=== PATIENT | male | born 1970 | race Two or more races ===

== ENCOUNTER 2023-05-07 20:58 | Observation (INO) | payer BC, SELFPAY ==
[2023-05-07 21:05] VITALS: BP 138/92; PULSE 94; RESP 18; TEMP 36.8; O2SAT 97; BMI 45.5
--- NOTE | 2023-05-07 22:05 | ED_ITS ---
HPI - Extremity Injury (Lower) General Chief Complaint: Extremity Injury, Lower Stated Complaint: RT LEG SWELLING REDNESS Time Seen by Provider: 05/07/23 21:56 Mode of arrival: walk-in History of Present Illness HPI Narrative: past history of cellulitis RLE 2 years ago. Now presents complaining of recurrent chills for 3 days. He spent 3 days on the couch. Yesterday noticed redness RLE. Did not come to the hospital because he wanted to go to a family alliance party. Now presents for evaluation. Still has redness of his right lower extremity that has now extended about his knee. Denies history of diabetes. Related Data Home Medications Medication Instructions Recorded Confirmed No Known Home Medications 05/07/23 05/07/23 Allergies Allergy/AdvReac Type Severity Reaction Status Date / Time No Known Drug Allergies Allergy Verified 05/07/23 21:11 Review of Systems ROS Status of ROS 10 or more systems reviewed and unremarkable except as noted in history and below PFSH PFSH Social History Smoking status: Former smoker Exam Constitutional Vital Signs, click to edit/add: Last Vital Signs Temp 98.3 F 05/07/23 21:05 Pulse 94 H 05/07/23 21:05 Resp 18 05/07/23 21:05 BP 138/92 H 05/07/23 21:05 Pulse Ox 97 05/07/23 21:05 O2 Del Method Room Air 05/07/23 21:05 Common normals: no apparent distress, oriented x3, alert and well nourished Eye Common normals: EOMs intact bilaterally and conjunctivae normal Respiratory Common normals: normal respiratory effort, no retractions, no use of accessory muscles and clear to auscultation bilaterally Cardio Common normals: regular rate, regular rhythm, S1 normal heart sound and S2 n ormal heart sound GI Common normals: Normal to inspection, nondistended, normoactive bowel sounds present, soft to palpation and non-tender Extremity Other: erythema and swelling entire right lower ext. with erythema extending just above the right knee Neuro Common normals: oriented x3, CN's II-XII intact bilaterally, moves all extremities, no focal motor deficits and no sensory deficits noted Psych Appearance: grossly normal Course Vital Signs Vital signs: Vital Signs Temperature 98.3 F 05/07/23 21:05 Pulse Rate 94 H 05/07/23 21:05 Respiratory Rate 18 05/07/23 21:05 Blood Pressure 138/92 H 05/07/23 21:05 Pulse Oximetry 97 05/07/23 21:05 Oxygen Delivery Method Room Air 05/07/23 21:05 Temperature 98.3 F 05/07/23 21:05 Pulse Rate 94 H 05/07/23 21:05 Respiratory Rate 18 05/07/23 21:05 Blood Pressure 138/92 H 05/07/23 21:05 Pulse Oximetry 97 05/07/23 21:05 Oxygen Delivery Method Room Air 05/07/23 21:05 MDM - Extremity Injury (Lower) MDM Narrative Medical decision making narrative: patient presents with cellulitis RLE and elevated d-dimer . Was hospitalized a [facility] 2 years ago for similar infection of his leg and states it was not getting better despite antibiotics at first. He described a biopsy of his leg was performed due to his poor response to antibiotics but then it started to improve. He has been ill with chills(shaking chills) for past 2-3 days. Noticed redness of his leg yesterday that has extended. d-dimer elevated. Discussed with the hospitalist. patient given vanco and clindamycin. also dose of Lovenox ordered. Patient admitted to hospitalist service Discharge Plan Discharge Chief Complaint: Extremity Injury, Lower Clinical Impression: Cellulitis of leg, right Patient Disposition: Admitted as Observation
[2023-05-07 22:11] LABS: Basophils Percent Auto 0.2 % (0.2-2.0); Eosinophils Absolute Auto 0.2 10^3/uL (0.0-0.7); Hematocrit 40.9 % (42.0-54.0); Immature Granulocytes Abs Auto 0.05 10^3/uL (0.00-0.03); Immature Granulocytes Pct Auto 0.8 % (0.0-0.5); Lymphocytes Absolute Auto 1.2 10^3/uL (1.2-3.8); Lymphocytes Percent Auto 17.4 % (20.5-60.0); Mean Corpuscular HGB Conc 31.8 g/dL (29.9-35.2); Mean Corpuscular Volume 81.8 fL (80.0-94.0); Mean Platelet Volume 10.1 fL (9.5-13.5); Monocytes Absolute Auto 0.5 10^3/uL (0.3-0.8); Monocytes Percent Auto 6.9 % (1.7-12.0); Neutrophils Absolute Auto 4.8 10^3/uL (1.4-6.5); Neutrophils Percent Auto 71.7 % (43.0-75.0); Platelet Count 239 10^3/uL (150-450); Red Cell Distribution Width 13.9 % (11.0-15.0); White Blood Count 6.7 10^3/uL (4.0-11.0)
[2023-05-07 22:20] LABS: Anion Gap 12.6; BUN Creatinine Ratio 11.1; C Reactive Protein 11.7 mg/dL (<=1.0); Calcium 8.3 mg/dL (8.5-10.1); Carbon Dioxide 26.1 mmol/L (21.0-32.0); Chloride 102 mmol/L (98-107); Estimated GFR (African America >60 (>=60); Estimated GFR (Non-African Ame >60 (>=60); Glucose 209 mg/dL (74-106); Potassium 3.7 mmol/L (3.5-5.1); Sodium 137 mmol/L (136-145)
[2023-05-07 22:21] LABS: Erythrocyte Sedimentation Rate 98 mm/hr (<=20)
[2023-05-07 22:23] LABS: D Dimer 0.71 mg/L FEU (<=0.59)
[2023-05-07] MEDS: CLINDAMYCIN PHOSPHATE/D5W 900 MG/50 ML PIGGYBACK 100 MG IV (22:29)
[2023-05-07] MEDS: VANCOMYCIN HCL 1,000 MG in 0.9 % SODIUM CHLORIDE 250 ML 250 MG IV (23:00)
[2023-05-07 23:12] VITALS: BP 120/75; PULSE 88; RESP 16; O2SAT 97
[2023-05-07] MEDS: ENOXAPARIN SODIUM 120 MG/0.8 ML SYRINGE SUBQ (23:16)
[2023-05-07 23:53] VITALS: BMI 45.9
[2023-05-08] VITALS: BP 112/78; PULSE 91; RESP 18; TEMP 36.9; O2SAT 94
--- NOTE | 2023-05-08 02:09 | W.PM.TELEPN ---
Progress Note: Subjective Subjective Interval history: Pt reports that he was driving to a friend's house on (approximately 25 miles) when he arrived, he felt severe chills and shaking. He noticed pain and redness and swelling in his legs and when he returned home, he wrapped himself in blankets and felt fevers and chills for two days, after which he decided to come to the hospital as his condition was not improving. In the ED, he was noted to have swelling and concern for cellulitis and was referred for admission to medicine. At the time of my exam, his pain is well controlled and he complains more of a pressure like sensation in the leg. He denies any trauma to the leg, no shortness of breath, no pertinent history of same. Exam Narrative Exam Narrative: General: NAD, sitting up in bed. HEENT: NC/AT, PEERL Neck: FROM Card: RRR, S1, S2, No murmur Pulm: CTA B/L Gastro: No guarding Musculosk: ++edema and erythema of RLE extending to R knee Neuro: AAOx2 Psych: Calm, Cooperative, Cheerful Constitutional Vital Signs, click to edit/add: Last Vital Signs Temp 98.4 F 05/08/23 00:00 Pulse 91 H 05/08/23 00:00 Resp 18 05/08/23 00:00 BP 112/78 05/08/23 00:00 Pulse Ox 94 L 05/08/23 00:00 O2 Del Method Room Air 05/08/23 00:00 Progress Note: Objective Labs Labs: Short CBC 05/07/23 Range/Units 21:15 WBC 6.7 (4.0-11.0) 10^3/uL Hgb 13.0 L (14.0-18.0) g/dL Hct 40.9 L (42.0-54.0) % Plt Count 239 (150-450) 10^3/uL BMP 05/07/23 21:15 Sodium 137 Potassium 3.7 Chloride 102 Carbon Dioxide 26.1 BUN 12.0 Creatinine 1.08 Glucose 209 H Calcium 8.3 L Progress Note: A&P Assessment and Plan (1) Cellulitis of leg, right: Assessment and Plan: - Admit to inpatient - Blood cx x 2 given persistent rigors - Tylenol PRN - Doppler US RLE - Pt received Vancomycin and CLindamycin in the ED - Continue Ancef, monitor response Telemedicine Attestation Telemedicine Attestation I conducted this encounter from [[place]] via secure live, [id number] video conference with the patient, located at [facility] with [nurse]. Prior to the interview, the risks and benefits of telemedicine were discussed with the patient and verbal consent was obtained.
--- NOTE | 2023-05-08 02:16 | US_ITS ---
[facility] [id number] Patient Name: SAIDA CABRERA MRN: [id number] date: 1970 Sex: M Assigned Patient Location: [place] Current Patient Location: [place] Accession/Order Number: [id number] Exam Date: 05/08/2023 07:40 Report Date: 05/08/2023 09:39 At the request of: ANA DRAKE Procedure: US venous doppler LE BI EXAMINATION: US venous doppler LE BI HISTORY: Swelling , redness, pain COMPARISON: No relevant comparison available. FINDINGS: REGION: Bilateral extremities THROMBI: None. COMPRESSIBILITY: Normal compressibility. FLOW: Normal waveform and antegrade flow between 5 and 20 cm/s. OTHER: Subcutaneous edema within lower right leg. Prominent lymph node within right groin; likely reactive. US/US venous doppler LE BI IMPRESSION: 1. No deep vein thrombus within the right or left lower extremity. 2. Distal right lower extremity subcutaneous edema. Electronically authenticated by: MARY CLARK Date: 05/08/2023 09:39
[2023-05-08] MEDS: CEFAZOLIN SODIUM 1,000 MG VIAL 1000 MG (03:02)
[2023-05-08] MEDS: 0.9 % SODIUM CHLORIDE 50 ML 100 ML IV (03:02)
[2023-05-08 04:40] LABS: Basophils Percent Auto 0.3 % (0.2-2.0); Eosinophils Absolute Auto 0.2 10^3/uL (0.0-0.7); Eosinophils Percent Auto 3.2 % (0.9-7.0); Hemoglobin 11.8 g/dL (14.0-18.0); Immature Granulocytes Abs Auto 0.05 10^3/uL (0.00-0.03); Immature Granulocytes Pct Auto 0.8 % (0.0-0.5); Lymphocytes Absolute Auto 1.6 10^3/uL (1.2-3.8); Mean Corpuscular HGB Conc 30.3 g/dL (29.9-35.2); Mean Corpuscular Hemoglobin 25.9 pg (25.9-34.0); Mean Corpuscular Volume 85.7 fL (80.0-94.0); Mean Platelet Volume 9.9 fL (9.5-13.5); Monocytes Absolute Auto 0.6 10^3/uL (0.3-0.8); Monocytes Percent Auto 9.3 % (1.7-12.0); Neutrophils Percent Auto 61.4 % (43.0-75.0); Platelet Count 215 10^3/uL (150-450); Red Blood Count 4.55 10^6/uL (4.70-6.10); Red Cell Distribution Width 14.1 % (11.0-15.0); White Blood Count 6.6 10^3/uL (4.0-11.0)
[2023-05-08 05:01] LABS: Alanine Aminotransferase 36 U/L (16-63); Albumin Globulin Ratio 0.7; Albumin Level 2.9 g/dL (3.4-5.0); Alkaline Phosphatase 78 U/L (46-116); Anion Gap 11.9; Aspartate Amino Transferase 14 U/L (15-37); BUN Creatinine Ratio 13.8; Bilirubin Total 0.5 mg/dL (0.2-1.0); Calcium 8.5 mg/dL (8.5-10.1); Carbon Dioxide 28.1 mmol/L (21.0-32.0); Chloride 104 mmol/L (98-107); Estimated GFR (African America >60 (>=60); Estimated GFR (Non-African Ame >60 (>=60); Globulin 4.4 g/dL; Glucose 135 mg/dL (74-106); Magnesium 2.5 mg/dL (1.8-2.4); Sodium 140 mmol/L (136-145); Total Protein 7.3 g/dL (6.4-8.2)
[2023-05-08 05:56] VITALS: BP 129/73; PULSE 78; RESP 16; TEMP 37.2; O2SAT 96
--- NOTE | 2023-05-08 08:11 | P.HP_ITS ---
H&P: HPI History of Present Illness Chief complaint: rt leg swelling redness Narrative: For and chills last 4 to 5 days. Erythema started in the right lower extremity in the last 3 days. Patient is a history of severe cellulitis leading to sepsis approximately 2 years ago at additional facility. This is the same leg where that started. We will try to obtain records. Patient mated for IV antibiotics secondary to the severity of his cellulitis and the history of the sepsis secondary to cellulitis of the same extremity. Ultrasound of lower extremities are pending Review of Systems ROS Constitutional Reports: fever and chills Cardiovascular Denies: chest pain Respiratory Denies: shortness of breath Gastrointestinal Denies: abdominal pain Genitourinary Denies: painful urination Musculoskeletal Denies: back pain Neurological Denies: headache PFSH PFSH Medical History (Updated 05/07/23 @ 23:45 by Stefany Hairston) Surgical History (Updated 05/07/23 @ 23:48 by Stefany Hairston) Family History (Updated 05/07/23 @ 23:48 by Stefany Hairston) Father Heart failure Mother Heart failure Social History (Updated 05/07/23 @ 23:49 by Stefany Hairston) Smoking status: Former smoker Non-prescribed substance use: denies use 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- [employer] Highest level of school completed/degree received: high school graduate Are you now , , , , never or living with a partner: Little interest or pleasure in doing things: not at all Feeling down, depressed, or hopeless: not at all Feel stressed/tense/nervous/anxious/difficulty sleeping: not at all Do you think of yourself as: straight/heterosexual Gender Identity: male Meds Home Medications and Allergies Home Medications Medication Instructions Recorded Confirmed Type No Known Home Medications 05/07/23 05/07/23 History Allergies Allergy/AdvReac Type Severity Reaction Status Date / Time No Known Drug Allergies Allergy Verified 05/07/23 21:11 Exam Constitutional Vital Signs, click to edit/add: Last Vital Signs Temp 98.9 F 05/08/23 05:56 Pulse 78 05/08/23 05:56 Resp 16 05/08/23 05:56 BP 129/73 H 05/08/23 05:56 Pulse Ox 96 05/08/23 05:56 O2 Del Method Room Air 05/08/23 05:56 Documenting provider has reviewed patient's vital signs: yes Common normals: no apparent distress Chest Common normals: inspection of chest normal Respiratory Common normals: normal respiratory effort, no retractions and clear to auscultation bilaterally Cardio Common normals: regular rate, regular rhythm and no murmurs GI Common normals: Normal to inspection, nondistended, normoactive bowel sounds present Extremity Common normals: abnormal to inspection (Significant swelling right lower extremity. Erythema extending up most of ) Other: Area below the knee, at the line of demarcation. Results Labs Labs: Short CBC 05/07/23 05/08/23 Range/Units 21:15 04:15 WBC 6.7 6.6 (4.0-11.0) 10^3/uL Hgb 13.0 L 11.8 L (14.0-18.0) g/dL Hct 40.9 L 39.0 L (42.0-54.0) % Plt Count 239 215 (150-450) 10^3/uL BMP 05/07/23 05/08/23 21:15 04:15 Sodium 137 140 Potassium 3.7 4.0 Chloride 102 104 Carbon Dioxide 26.1 28.1 BUN 12.0 13.0 Creatinine 1.08 0.94 Glucose 209 H 135 H Calcium 8.3 L 8.5 Liver Function 05/08/23 Range/Units 04:15 Total Bilirubin 0.5 (0.2-1.0) mg/dL AST 14 L (15-37) U/L ALT 36 (16-63) U/L Alkaline Phosphatase 78 (46-116) U/L Albumin 2.9 L (3.4-5.0) g/dL Assessment and Plan Assessment and Plan (1) Cellulitis of leg, right: Assessment and Plan: Cellulitis of right lower extremity, same extremity that resulted in sepsis 2 years ago. Was treated for prolonged stay at an outside facility. We will try to obtain those records. White blood cell count so far is normal but sedimentation rate significantly elevated. We will track that daily. Monitor Chem-8 daily secondary to being placed on vancomycin.-Check ultrasound lower extremities this morning. Hyperglycemia on admission-not a known [id number]-[id number] and insulin sliding scale
[2023-05-08] MEDS: CEFAZOLIN SODIUM/DEXTROSE,ISO 1 GM/50 ML IV.SOLN IV ×2 (10:25→18:12)
[2023-05-08] MEDS: VANCOMYCIN HCL 1,000 MG in 0.9 % SODIUM CHLORIDE 250 ML 250 MG IV ×2 (11:17→18:47)
[2023-05-08 11:30] LABS: Glucometer 138 mg/dL (74-106)
[2023-05-08 14:41] VITALS: BP 151/79; PULSE 76; RESP 18; TEMP 36.8; O2SAT 96
[2023-05-08 15:05] VITALS: O2SAT 96
[2023-05-08 16:07] LABS: Glucometer 122 mg/dL (74-106)
[2023-05-08 19:15] VITALS: O2SAT 95
[2023-05-08 20:24] VITALS: BP 124/74; PULSE 84; RESP 18; TEMP 36.7; O2SAT 93
[2023-05-08 21:18] LABS: Glucometer 209 mg/dL (74-106)
[2023-05-08] MEDS: INSULIN ASPART 300 UNIT/3 ML PEN SUBQ (22:11)
[2023-05-09] MEDS: CEFAZOLIN SODIUM/DEXTROSE,ISO 1 GM/50 ML IV.SOLN IV (01:10)
[2023-05-09] MEDS: VANCOMYCIN HCL 1,000 MG in 0.9 % SODIUM CHLORIDE 250 ML 250 MG IV (02:03)
[2023-05-09 04:00] VITALS: BP 163/77; PULSE 70; RESP 18; TEMP 36.4; O2SAT 91
[2023-05-09 04:46] LABS: Basophils Percent Auto 0.3 % (0.2-2.0); Eosinophils Absolute Auto 0.2 10^3/uL (0.0-0.7); Eosinophils Percent Auto 3.5 % (0.9-7.0); Hematocrit 40.2 % (42.0-54.0); Hemoglobin 12.3 g/dL (14.0-18.0); Immature Granulocytes Pct Auto 1.5 % (0.0-0.5); Lymphocytes Absolute Auto 1.3 10^3/uL (1.2-3.8); Lymphocytes Percent Auto 19.6 % (20.5-60.0); Mean Corpuscular HGB Conc 30.6 g/dL (29.9-35.2); Mean Corpuscular Hemoglobin 26.1 pg (25.9-34.0); Mean Corpuscular Volume 85.2 fL (80.0-94.0); Mean Platelet Volume 9.6 fL (9.5-13.5); Monocytes Absolute Auto 0.5 10^3/uL (0.3-0.8); Monocytes Percent Auto 6.6 % (1.7-12.0); Neutrophils Absolute Auto 4.7 10^3/uL (1.4-6.5); Neutrophils Percent Auto 68.5 % (43.0-75.0); Platelet Count 232 10^3/uL (150-450); Red Blood Count 4.72 10^6/uL (4.70-6.10); Red Cell Distribution Width 13.9 % (11.0-15.0); White Blood Count 6.9 10^3/uL (4.0-11.0)
[2023-05-09 04:54] LABS: Erythrocyte Sedimentation Rate 86 mm/hr (<=20)
[2023-05-09 05:00] LABS: BUN Creatinine Ratio 13.5; Calcium 8.5 mg/dL (8.5-10.1); Carbon Dioxide 27.4 mmol/L (21.0-32.0); Chloride 106 mmol/L (98-107); Estimated GFR (African America >60 (>=60); Estimated GFR (Non-African Ame >60 (>=60); Glucose 176 mg/dL (74-106); Potassium 4.4 mmol/L (3.5-5.1); Sodium 141 mmol/L (136-145)
[2023-05-09 07:27] LABS: Glucometer 116 mg/dL (74-106)
--- NOTE | 2023-05-09 07:42 | P.DS_ITS ---
DS: Providers Provider Date of admission: 05/08/23 02:17 Primary care physician: Vivek Milton MD DS: Diagnosis Discharge Diagnosis (1) Cellulitis of leg, right: Plan Cellulitis of right lower extremity, Hyperglycemia DS: Summary Hospital Course Hospital Course: Patient admitted with fever, chills, increasing right leg pain and swelling and erythema. He was found to have cellulitis of his right lower extremity. With the fever and chills and a history of sepsis secondary to the right lower extremity cellulitis 2 years ago. Patient was admitted with IV antibiotics. Started on vancomycin and cephalosporin IV. Over the first 12 hours with no significant improvement in the erythema appears to still at the edge and 1 area outside the line of demarcation. Today however looks much improved. Well inside line of demarcation the calor is much improved with the dolor is much improved and the rubor is fading. At this point we will discharge patient home in improving condition. Medications see list. Follow-up with me in the office within the next week. Status at Discharge Functional status at discharge: independent ambulation Time Spent with Patient Time attestation: Total time spent providing and/or coordinating discharge services: Exam Constitutional Vital Signs, click to edit/add: Last Vital Signs Temp 97.5 F L 05/09/23 04:00 Pulse 70 05/09/23 04:00 Resp 18 05/09/23 04:00 BP 163/77 H 05/09/23 04:00 Pulse Ox 91 L 05/09/23 04:00 O2 Del Method Room Air 05/09/23 04:00 Documenting provider has reviewed patient's vital signs: yes Common normals: no apparent distress Chest Common normals: inspection of chest normal Respiratory Common normals: normal respiratory effort, no retractions and clear to auscultation bilaterally Cardio Common normals: regular rate, regular rhythm and no murmurs GI Common normals: Normal to inspection, nondistended, normoactive bowel sounds present Extremity Common normals: abnormal to inspection (Significant swelling right lower extremity. Erythema extending up most of ) Other: Area below the knee, inside line of demarcation. DS: Data Data Completed and Pending Labs on day of discharge: Labs from last 24 hours 05/09/23 05/09/23 05/08/23 07:08 04:15 21:15 WBC 6.9 RBC 4.72 Hgb 12.3 L Hct 40.2 L MCV 85.2 MCH 26.1 MCHC 30.6 RDW 13.9 Plt Count 232 MPV 9.6 Neut % (Auto) 68.5 Lymph % (Auto) 19.6 L Da[place]hin % (Auto) 6.6 Eos % (Auto) 3.5 Baso % (Auto) 0.3 Neut # (Auto) 4.7 Lymph # (Auto) 1.3 Da[place]hin # (Auto) 0.5 Eos # (Auto) 0.2 Baso # (Auto) 0.0 Abs Immat Gran (auto) 0.10 H Imm/Tot Granulo (auto) 1.5 H ESR 86 H Sodium 141 Potassium 4.4 Chloride 106 Carbon Dioxide 27.4 Anion Gap 12.0 BUN 13.0 Creatinine 0.96 Est GFR ( Amer) >60 Est GFR (Non-Af Amer) >60 BUN/Creatinine Ratio 13.5 Glucose 176 H Calcium 8.5 POC Glucose 116 H 209 H 05/08/23 05/08/23 16:06 11:29 WBC RBC Hgb Hct MCV MCH MCHC RDW Plt Count MPV Neut % (Auto) Lymph % (Auto) Dauphin % (Auto) Eos % (Auto) Baso % (Auto) Neut # (Auto) Lymph # (Auto) Da[place]hin # (Auto) Eos # (Auto) Baso # (Auto) Abs Immat Gran (auto) Imm/Tot Granulo (auto) ESR Sodium Potassium Chloride Carbon Dioxide Anion Gap BUN Creatinine Est GFR ( Amer) Est GFR (Non-Af Amer) BUN/Creatinine Ratio Glucose Calcium POC Glucose 122 H 138 H Discharge Plan Discharge Disposition: Home, Self-Care Condition: Good Discharge Medications: New clindamycin HCl 300 mg capsule 300 mg PO Q6H 10 Days Qty: 40 0RF cephalexin 500 mg capsule 1,000 mg PO BID 10 Days Qty: 40 0RF Activity: resume usual activities as tolerated Diet: advance to your usual diet Patient Instructions: Cephalexin (By mouth), Clindamycin (By mouth), Cellulitis (GEN) Forms: Portal Instructions Follow Up Appointments: Follow up appt. with Dr. Milton on May.19 @ 2:45pm Office #: [phone] Discharge Date/Time: 05/09/23 08:45
--- NOTE | 2023-05-10 13:01 | CM.DCFOLLOWU ---
Person spoke with: patient How are you feeling? doing well How is your pain? none Did you understand your discharge instructions? yes Do you have any questions about your discharge instructions? no Were you given any prescriptions at discharge? yes Were you able to get your prescriptions filled? yes Do you understand how to take your medications as ordered? yes Do you have any questions about your follow up appointment and do you plan to keep your follow up appointment? I changed it to this MondayMay 12. Is there anything else that you would like to discuss? no thanks Questions/Comments/Concerns/Other: n/a
== END 2023-05-09 08:45 | disposition home or self-care (01) ==
LOC: ER 22:47 → MS 23:44
PROVIDERS: Admitting Provider Internal Medicine; Emergency Provider Internal Medicine; PCP Family Medicine; Visit Provider Family Medicine
DX: L03.115 Cellulitis of right lower limb (principal); R73.9 Hyperglycemia, unspecified; R70.0 Elevated erythrocyte sedimentation rate; Z87.891 Personal history of nicotine dependence
CPT/HCPCS: 36415; 80048; 80053; 82948; 83735; 85025; 85378; 85652; 86140; 87081; 93970; 94761; 96365; 96366; 96367; 96368; 96372; 99285; G0378; J3370; Q3014

== ENCOUNTER 2023-05-12 09:51 | Outpatient (OUT) | payer BC, SELFPAY ==
[2023-05-12 10:23] LABS: Basophils Absolute Auto 0.1 10^3/uL (0.0-0.1); Basophils Percent Auto 0.7 % (0.2-2.0); Eosinophils Absolute Auto 0.2 10^3/uL (0.0-0.7); Eosinophils Percent Auto 2.9 % (0.9-7.0); Hematocrit 44.3 % (42.0-54.0); Hemoglobin 13.8 g/dL (14.0-18.0); Immature Granulocytes Pct Auto 4.8 % (0.0-0.5); Lymphocytes Absolute Auto 1.7 10^3/uL (1.2-3.8); Lymphocytes Percent Auto 20.8 % (20.5-60.0); Mean Corpuscular HGB Conc 31.2 g/dL (29.9-35.2); Mean Corpuscular Hemoglobin 25.9 pg (25.9-34.0); Mean Corpuscular Volume 83.3 fL (80.0-94.0); Mean Platelet Volume 9.1 fL (9.5-13.5); Monocytes Absolute Auto 0.4 10^3/uL (0.3-0.8); Monocytes Percent Auto 4.9 % (1.7-12.0); Neutrophils Absolute Auto 5.5 10^3/uL (1.4-6.5); Neutrophils Percent Auto 65.9 % (43.0-75.0); Platelet Count 346 10^3/uL (150-450); Red Blood Count 5.32 10^6/uL (4.70-6.10); Red Cell Distribution Width 13.7 % (11.0-15.0); White Blood Count 8.4 10^3/uL (4.0-11.0)
[2023-05-12 11:09] LABS: Estimated Average Glucose 154 mg/dL
[2023-05-12 11:24] LABS: Alanine Aminotransferase 35 U/L (16-63); Albumin Globulin Ratio 0.7; Albumin Level 3.5 g/dL (3.4-5.0); Alkaline Phosphatase 90 U/L (46-116); Anion Gap 10.9; Aspartate Amino Transferase 11 U/L (15-37); BUN Creatinine Ratio 17.2; Bilirubin Total 0.6 mg/dL (0.2-1.0); Calcium 9.3 mg/dL (8.5-10.1); Carbon Dioxide 28.6 mmol/L (21.0-32.0); Chloride 105 mmol/L (98-107); Chol HDL Ratio 6.2; Cholesterol 193 mg/dL (<=200); Estimated GFR (African America >60 (>=60); Estimated GFR (Non-African Ame >60 (>=60); Free T3 2.71 pg/mL (2.18-3.98); Globulin 4.7 g/dL; Glucose 136 mg/dL (74-106); HDL Cholesterol 31 mg/dL (40-60); Potassium 4.5 mmol/L (3.5-5.1); Sodium 140 mmol/L (136-145); Thyroid Stimulating Hormone 2.541 uIU/mL (0.358-3.740); Total Protein 8.2 g/dL (6.4-8.2); Triglycerides 143 mg/dL (<=150); VLDL CHOLESTEROL 28.6 mg/dL
[2023-05-12 12:58] LABS: Prostate Specific Antigen Scrn 0.74 ng/mL (<=4.00)
[2023-05-13 12:08] LABS: Insulin 51.3 uIU/mL (2.6-24.9)
== END 2023-05-12 09:52 | disposition home or self-care (01) ==
LOC: LAB 09:52
PROVIDERS: PCP Family Medicine; Visit Provider Family Medicine
DX: Z00.00 Encounter for general adult medical examination without abnormal findings (principal); Z12.5 Encounter for screening for malignant neoplasm of prostate
CPT/HCPCS: 36415; 80053; 80061; 83036; 83525; 84436; 84443; 84481; 85025; G0103

== ENCOUNTER 2023-08-02 20:12 | Outpatient (OUT) | payer BC, SELFPAY | END 2023-08-02 20:13 | disposition home or self-care (01) | LOC: SLEEP 20:12 | PROVIDERS: PCP Family Medicine; Visit Provider Family Medicine | DX: G47.33 Obstructive sleep apnea (adult) (pediatric) (principal) | CPT/HCPCS: 95810 ==

== ENCOUNTER 2023-08-09 20:33 | Outpatient (OUT) | payer BC, SELFPAY | END 2023-08-09 20:34 | disposition home or self-care (01) | LOC: SLEEP 20:33 | PROVIDERS: PCP Family Medicine; Visit Provider Family Medicine | DX: G47.33 Obstructive sleep apnea (adult) (pediatric) (principal) | CPT/HCPCS: 95811 ==

== ENCOUNTER 2024-05-28 12:35 | Emergency (ER) | payer BC, SELFPAY ==
[2024-05-28 12:42] VITALS: BP 163/91; PULSE 84; TEMP 36.6; O2SAT 97; BMI 45.5
--- OUTSIDE RECORDS SUMMARY | 2024-05-28 12:53 | XMS_ITS | CCD ---
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 Name Role Phone Oscar Milton Primary Care Physician [phone] REQUEST, NONE LISTED Primary Care Unavaila ble BONITA, DR SUMMERS Consulting Unavailable FALL, DR SUMMERS Admitting Unavailable FALL, DR SUMMERS Attending Unavailable REQUEST, NONE LISTED Primary Care Unavaila ble BONITA, DR SUMMERS Consulting Unavailable FALL, DR SUMMERS Admitting Unavailable FALL, DR SUMMERS Attending Unavailable SCHAEFER, GUANACO FLOYD Consulting Unavailable JAYSON, GENIA Consulting Unavailable KARINE, DR MOORE Attending Unavailable REQUEST, NONE LISTED Primary Care Unavaila haleigh MILTON, DR MOORE Admitting Unavailable BONITA, DR SUMMERS Attending Unavailable REQUEST, DR MARKHAM LISTED Primary Care Unavaila ble FALL, DR SUMMERS Consulting Unavailable FALL, DR SUMMERS Admitting Unavailable FALL, MD Uvaldo Blakely Attending Unavailable FALL, MD Uvaldo Blakely Attending Unavailable BONITA, MD Uvaldo Blakely Attending Unavailable Nasimy PROVIDEROscar Referring Unavailabl e BONITA, MD Uvaldo Blakely Attending Unavailable Allergies Allergy Classification Reported Allergen(s) Allergy Type Date of Onset Reaction(s) Facility (1 source) No Known Medication Allergies; Translations: [No Known Medication Allergies] Propensity to adverse reactions (disorder) [facility] Repository Problems Problem Classification Problem Date Documented Date Episodic/Chronic Genitourinary symptoms and ill-defined conditions (5 sources) Sensation as if bladder still full; Translations: [Feeling of incomplete bladder emptying] Onset: 07-18-2022 Episodic Hyperplasia of prostate (5 sources) Benign prostatic hypertrophy with outflow obstruction; Translations: [Benign prostatic hyperplasia with lower urinary tract symptoms] Onset: 07-18-2022 Chronic Other diseases of bladder and urethra (1 source) Submeatal urethral stricture; Translations: [Unspecified urethral stricture, male, meatal] Onset: 07-18-2022 Episodic Other diseases of bladder and urethra (3 sources) Male urethral stricture 07-18-2022 Episodic Other diseases of bladder and urethra (4 sources) Unspecified urethral stricture, male, meatal; Translations: [UNSP URETHRAL STRICTURE MALE MEATAL] Onset: 08-11-2022 Episodic Other diseases of bladder and urethra (1 source) Unspecified urethral stricture, male, unspecified site; Translations: [UNSP URETHRAL STRCT MALE UNSP SITE] Onset: 07-30-2022 Episodic Other male genital disorders (1 source) Other specified disorders of penis; Translations: [OTHER SPECIFIED DISORDERS OF PENIS] Onset: 08-17-2022 Chronic Other nutritional; endocrine; and metabolic disorders (1 source) Morbid (severe) obesity due to excess calories; Translations: [MORBID SEVERE OBES D/T EXCESS KELSEA] Onset: 08-17-2022 Chronic Other nutritional; endocrine; and metabolic disorders (1 source) Body mass index (BMI) 40.0-44.9, adult; Translations: [BODY MASS INDEX BMI 40.0-44.9 ADULT] Onset: 08-17-2022 Chronic Other screening for suspected conditions (not mental disorders or infectious disease) (2 sources) Encounter for screening for malignant neoplasm of prostate; Translations: [Screening for malignant neoplasm done] Onset: 07-18-2022 Episodic Residual codes; unclassified (1 source) Past history of procedure; Translations: [Other specified postprocedural states] Onset: 07-18-2022 Episodic Screening and history of mental health and substance abuse codes (1 source) Personal history of nicotine dependence; Translations: [PERSONAL HISTORY OF NICOTINE DEPEND] Onset: 08-17-2022 Episodic Unclassified (3 sources) Finding of sensation of bladder 07-18-2022 Unclassified (3 sources) Patient encounter status 07-18-2022 Unclassified (1 source) CONTACT W/AND (SUSP) EXPOS COVID-19; Translations: [CONTACT W/AND (SUSP) EXPOS COVID-19] Onset: 08-14-2022 Results Test Name Value Interpretation Reference Range Facil ity Provider Letteron 09-16-2022 Provider Letter September 16, 2022 PAKO CABRERA [address] [place] [address] PAKO CABRERA 1970 Dear Pako , You missed your scheduled appointment on: 09/16/[address] Uvaldo Fall and the purpose of this letter is to inform you of our *No Show Policy*. Our appointment slots fill rapidly and when we have a no show appointment that time is lost. We could have used that time slot to care for a patient who needed to see one of our providers. Therefore, we ask that you call 24 hours in advance to cancel your appointment I was unable to reach you to reschedule and you do not have a voicemail set up. Please call our office to reschedule. Sincerely, [facility] [address], [place] [address] [facility] Operative Reporton Operative Report [id number] .00CD:127 [facility] Provider Letteron 08-15-2022 Provider Letter August 15, 2022 PAKO CABRERA [address] [place] [id number] PAKO CABRERA 1970 To Whom It May Concern, Please excuse above patient from work. Date of Appointment: From: 08/15/2022 To: May Return to Work On:08/16/2022 Restrictions: none Comments: Any questions, please call our office Sincerely, [facility] [address], [place] [address] [facility] Lab Reportson 08-11-2022 Lab Reports [id number] .00CD:127 [facility] Covid-19 PCR (CVDTBH)on 07-17 SARS-CoV-2 (COVID-19) RNA SARAH+probe Ql (Unsp spec) Not detected Normal NOT DETECTED [facility] Comment on above: Result Comment: This test is not yet approved or cleared by the [place] FDA. When there are no FDA-approved or cleared tests available, and other criteria are met, FDA can make tests available under an emergency access mechanism called an Emergency Use Authorization (EUA). The EUA for this test is supported by the [place] of Health and Human Service's (HHS's) declaration that circumstances exist to justify the emergency use of in vitro diagnostics for the detection and/or diagnosis of the virus that causes COVID-19. This EUA will remain in effect (meaning this test can be used) for the duration of the COVID-19 declaration justifying emergency of IVDs, unless it is terminated or revoked by FDA (after which the test may no longer be used). When diagnostic testing is negative, the possibility of a false negative should be considered in the context of a patient's recent exposures and the presence of clinical signs and symptoms consistent with SARS-CoV-2. Performed By: #### [facility] #### [facility] [address] [place] [address] Dr. Riri Mcmahon ECG 12-Leadon 07-29-2022 ECG 12-Lead [id number] .00CD:127 Normal [facility] Lab Reportson 07-29-2022 Lab Reports [id number] .00CD:127 Normal [facility] CBC AUTO DIFFon 07-28-2022 BASO # 0.0 103/ul Normal 0.0-0.1 [facility] Comment on above: Performed By: #### C BC #### [facility] [address] [place] [address] Dr. Riri Mcmahon Basophils/100 WBC (Bld) 0.4 % Normal 0.2-2.0 [facility] Comment on above: Performed By: #### C BC #### [facility] [address] [place] [address] Dr. Riri Mcmahon EO # 0.3 103/ul Normal 0.0-0.7 [facility] Comment on above: Performed By: #### C BC #### [facility] [address] [place] [address] Dr. Riri Mcmahon Eosinophils/100 WBC (Bld) 4.4 % Normal 0.9-7.0 [facility] Comment on above: Performed By: #### C BC #### [facility] [address] [place] [address] Dr. Riri Mcmahon Erythrocyte distribution width (RBC) [Ratio] 13.8 % Normal 11.0-15.0 [facility] Comment on above: Performed By: #### C BC #### [facility] [address] [place] [address] Dr. Riri Mcmahon Hematocrit (Bld) [Volume fraction] 44.2 % Normal 42.0-54.0 [facility] Comment on above: Performed By: #### C BC #### [facility] [address] [place] [address] Dr. Riri Mcmahon Hemoglobin (Bld) [Mass/Vol] 13.8 g/dL Critically low 14.0-18.0 [facility] Comment on above: Performed By: #### C BC #### [facility] [address] [place] [address] Dr. Riri Mcmahon IG # 0.04 10e3/ul Critically high 0.00-0.03 [facility] Comment on above: Performed By: #### C BC #### [facility] [address] [place] [address] Dr. Riri Mcmahon IG % 0.5 % Normal 0.0-0.5 [facility] Comment on above: Performed By: #### C BC #### [facility] [address] [place] [address] Dr. Riri Mcmahon LYMPH # 2.0 103/ul Normal 1.2-3.8 [facility] Comment on above: Performed By: #### C BC #### [facility] [address] [place] [address] Dr. Riri Mcmahon Lymphocytes/100 WBC (Bld) 27.2 % Normal 20.5-60.0 [facility] Comment on above: Performed By: #### C BC #### [facility] [address] [place] [address] Dr. Riri Mcmahon MANUAL DIFF REQ NO Normal [facility] Comment on above: Performed By: #### C BC #### [facility] [address] [place] [address] Dr. Riri Mcmahon MCH (RBC) [Entitic mass] 26.3 pg Normal 25.9-34.0 [facility] Comment on above: Performed By: #### C BC #### [facility] [address] [place] [address] Dr. Riri Mcmahon MCHC (RBC) [Mass/Vol] 31.2 g/dL Normal 29.9-35.2 [facility] Comment on above: Performed By: #### C BC #### [facility] [address] [place] [address] Dr. Riri Mcmahon MCV (RBC) [Entitic vol] 84.2 fL Normal 80.0-94.0 [facility] Comment on above: Performed By: #### C BC #### [facility] [address] [place] [address] Dr. Riri Mcmahon MONO # 0.5 103/ul Normal 0.3-0.8 [facility] Comment on above: Performed By: #### C BC #### [facility] [address] [place] [address] Dr. Riri Mcmahon Monocytes/100 WBC (Bld) 6.2 % Normal 1.7-12.0 [facility] Comment on above: Performed By: #### C BC #### [facility] [address] [place] [address] Dr. Riri Mcmahon NEUT # 4.6 103/ul Normal 1.4-6.5 [facility] Comment on above: Performed By: #### C BC #### [facility] [address] [place] [address] Dr. Riri Mcmahon Neutrophils/100 WBC (Bld) 61.3 % Normal 43.0-75.0 [facility] Comment on above: Performed By: #### C BC #### [facility] [address] [place] [address] Dr. Riri Mcmahon Platelet mean volume (Bld) [Entitic vol] 9.4 fL Critically low 9.5-13.5 [facility] Comment on above: Performed By: #### C BC #### [facility] [address] [place] [address] Dr. Riri Mcmahon PLT 261 103/ul Normal 150-450 [facility] Comment on above: Performed By: #### C BC #### [facility] [address] [place] [address] Dr. Riri Mcmahon RBC 5.25 106/ul Normal 4.70-6.10 [facility] Comment on above: Performed By: #### C BC #### [facility] [address] [place] [address] Dr. Riri Mcmahon WBC 7.5 103/ul Normal 4.0-11.0 [facility] Comment on above: Performed By: #### C BC #### [facility] [address] [place] [address] Dr. Riri Mcmahon PROF CHEM 8 (BAS METB)on Anion gap [Moles/Vol] 8.1 mmol/L Normal [facility] Comment on above: Performed By: #### B MP #### [facility] [address] [place] [address] Dr. Riri Mcmahon Calcium [Mass/Vol] 9.4 mg/dL Normal 8.5-10.1 [facility] Comment on above: Performed By: #### B MP #### [facility] [address] [place] [address] Dr. Riri Mcmahon Chloride [Moles/Vol] 105 mmol/L Normal 98-107 [facility] Comment on above: Performed By: #### B MP #### [facility] [address] [place] [address] Dr. Riri Mcmahon CO2 [Moles/Vol] 32.5 mmol/L Critically high 21.0-32.0 [facility] Comment on above: Performed By: #### B MP #### [facility] [address] [place] [address] Dr. Riri Mcmahon Creatinine [Mass/Vol] 0.93 mg/dL Normal 0.70-1.30 [facility] Comment on above: Performed By: #### B MP #### [facility] [address] [place] [address] Dr. Riri Mcmahon EGFR-AF GIBRALTARIAN >60 Normal >=60 [facility] Comment on above: Performed By: #### B MP #### [facility] [address] [address] [address] Riri Mcmahon EGFR-NON AF GIBRALTARIAN >60 Normal >=60 [facility] Comment on above: Performed By: #### B MP #### [facility] [address] [address] [address] Riri Mcmahon Glucose [Mass/Vol] 107 mg/dL Critically high 74-106 [facility] Comment on above: Performed By: #### B MP #### [facility] [address] [address] [address] Riri Mcmahon Potassium [Moles/Vol] 4.6 mmol/L Normal 3.5-5.1 [facility] Comment on above: Performed By: #### B MP #### [facility] [address] [address] [address] Riri Mcmahon Sodium [Moles/Vol] 141 mmol/L Normal 136-145 [facility] Comment on above: Performed By: #### B MP #### [facility] [address] [address] [address] Riri Mcmahon Urea nitrogen [Mass/Vol] 20.0 mg/dL Critically high 7.0-18.0 [facility] Comment on above: Performed By: #### B MP #### [facility] [address] [address] [address] Riri Mcmahon Urea nitrogen/Creatinine [Mass ratio] 21.5 mg/mg Normal [facility] Comment on above: Performed By: #### B MP #### [facility] [address] [address] [address] Riri Mcmahon Physician Orderon 07-26-2022 Physician Order [id number]# 1.00CD:127 Normal [facility] Pre-Certification Formon Pre-Certification Form [id number] 1.00CD:127 Normal [facility] Formson 07-19-2022 Forms [id number] .00CD:127 Normal [facility] Physician Referralon 022 Physician Referral [id number] .00CD:127 Normal [facility] Screenson 07-19-2022 Screens [id number] .00CD:127 Normal [facility] Ambulatory Visit Summaryon 1 Ambulatory Visit Summary PAKO CABRERA :1970 Visit Date:07/18/2022 Ambulatory Visit Instructions Your Diagnosis 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 Discharge Vitals Heart Rate (Peripheral) 82 Respiratory Rate 16 Blood Pressure 128/81 Height 164 cm Height 65 in Weight 118 kg Weight 259.6 lb BMI 43.87 What to do next You Need to Schedule the Following Appointments Follow Up with BONITA CEDILLO, TOM Agudelo When: Where: [facility] [address] [place] [address]- [id number] Test Results Urnls Dip Stick Auto w/o Microscopy POC 69095 (07/18/2022) Bilirubin Urine Dipstick - Negative Blood Urine Dipstick - Trace-intact Ketones Urine Dipstick - Negative Leukocytes Urine Dipstick - 1+ Small Nitrite Urine Dipstick - Negative Protein Urine Dipstick - 1+ (30 mg/dl) Specific [place] Urine Dipstick - 1.025 Urine Appearance Urine Dipstick - Clear Urine Color Urine Dipstick - Yellow Urobilinogen Urine Dipstick - Normal 0.2-1 EU/dl pH Urine Dipstick - 6 Allergies No Known Medication Allergies Problems Ongoing - Any problem that you are currently receiving treatment for. BPH with obstruction/lower urinary tract symptoms Feeling of incomplete bladder emptying History of meatotomy of urethra Prostate cancer screening Stricture of urethral meatus in male Education Materials Acute Urinary Retention, Male Acute urinary retention means that you cannot pee (urinate) at all, or that you pee too little and your bladder is not emptied completely. If it is not treated, it can lead to kidney damage or other serious problems. Follow these instructions at home: ? Take adyi-spt-ozfqimi and prescription medicines only as told by your doctor. Ask your doctor what medicines you should stay away from. Do not take any medicine unless your doctor says it is okay to do so. ? If you were sent home with a tube that drains the bladder (catheter), take care of it as told by your doctor. ? Drink enough fluid to keep your pee clear or pale yellow. ? If you were given an antibiotic, take it as told by your doctor. Do not stop taking the antibiotic even if you start to feel better. ? Do not use any products that contain nicotine or tobacco, such as cigarettes and e-cigarettes. If you need help quitting, ask your doctor. ? Watch for changes in your symptoms. Tell your doctor about them. ? If told, track changes in your blood pressure at home. Tell your doctor about them. ? Keep all follow-up visits as told by your doctor. This is important. Contact a doctor if: ? You have spasms or you leak pee when you have spasms. Get help right away if: ? You have chills or a fever. ? You have a tube that drains the bladder and: ? The tube stops draining pee. ? The tube falls out. ? You have blood in your pee. Summary ? Acute urinary retention means that you have problems peeing. It may mean that you cannot pee at all, or that you pee too little. ? If this condition is not treated, it can lead to kidney damage or other serious problems. ? If you were sent home with a tube that drains the bladder, take care of it as told by your doctor. ? Monitor any changes in your symptoms. Tell your doctor about any changes. This information is not intended to replace advice given to you by your health care provider. Make sure you discuss any questions you have with your health care provider. Document Released: 03/20/2009 Document Revised: 12/19/2019 Document Reviewed: 11/03/2017 [employer]ed [employer] Patient Education ? 2019 [employer] Basim Constantino [facility] Patient Educationon 07-18-20 Patient Education Urology Acute Urinary Retention, Male Acute urinary retention means that you cannot pee (urinate) at all, or that you pee too little and your bladder is not emptied completely. If it is not treated, it can lead to kidney damage or other serious problems. Follow these instructions at home: ? Take hlgt-zkd-wzfbgon and prescription medicines only as told by your doctor. Ask your doctor what medicines you should stay away from. Do not take any medicine unless your doctor says it is okay to do so. ? If you were sent home with a tube that drains the bladder (catheter), take care of it as told by your doctor. ? Drink enough fluid to keep your pee clear or pale yellow. ? If you were given an antibiotic, take it as told by your doctor. Do not stop taking the antibiotic even if you start to feel better. ? Do not use any products that contain nicotine or tobacco, such as cigarettes and e-cigarettes. If you need help quitting, ask your doctor. ? Watch for changes in your symptoms. Tell your doctor about them. ? If told, track changes in your blood pressure at home. Tell your doctor about them. ? Keep all follow-up visits as told by your doctor. This is important. Contact a doctor if: ? You have spasms or you leak pee when you have spasms. Get help right away if: ? You have chills or a fever. ? You have a tube that drains the bladder and: ? The tube stops draining pee. ? The tube falls out. ? You have blood in your pee. Summary ? Acute urinary retention means that you have problems peeing. It may mean that you cannot pee at all, or that you pee too little. ? If this condition is not treated, it can lead to kidney damage or other serious problems. ? If you were sent home with a tube that drains the bladder, take care of it as told by your doctor. ? Monitor any changes in your symptoms. Tell your doctor about any changes. This information is not intended to replace advice given to you by your health care provider. Make sure you discuss any questions you have with your health care provider. Document Released: 03/20/2009 Document Revised: 12/19/2019 Document Reviewed: 11/03/2017 [employer]ed [employer] Patient Education ? 2019 [employer] Basim Constantino [facility] Urology Office/Clinic Noteon 07-18-2022 Urology Office/Clinic Note Chief Complaint Referred for incomplete bladder emptying HPI Staff Pako is here today referred for incomplete bladder emptying. IPSS is 33. Pt could not give a UA sample at the moment. Pt states about 5 years ago he had a procedure where they cut his urethra, opened it up, and placed a cath for 7 to 10 days. PVR was 38ml. Dysuria: _yes pain and burning, ongoing for about 2-3 years. Incomplete bladder emptying: _yes Hematuria: _Denies Frequency: _every 2 hours Urgency: _yes Nocturia: _2-3x Stream: _weak stop and go, ackerman shave to push some days to get the urine out Leaking: _Denies Post void dripping: _yes Wearing pads/ Depends: _Denies Urge incontinence: _Denies Stress incontinence: _Denies Incontinence without Sensory Awareness: _Denies Abdominal pain: _yes comes and goes ongoing for a few years Flank pain: _yes comes and goes ongoing for a few years. Sexual complaints: _ History of Present Illness I have reviewed and verified the staff HPI to be accurate for this encounter. Review of Systems PHQ Score Initial Depression Screen Score: 0 ROS - Provider Constitutional: denies weight loss, denies hot flashes. Eyes: denies eye problems. Gastrointestinal: denies nausea, denies vomiting. Cardiovascular: denies chest pain or angina. Integumentary: no dryness Musculoskeletal: denies musculoskeletal symptoms. ENMT: denies otolaryngeal symptoms. Respiratory: no shortness of breath. Heme/Lymph: denies easy bleeding tendency, denies easy bruising tendency. Psychiatric: no confusion, no anxiety. Genitourinary: denies dysuria, denies hematuria, denies discharge, denies urinary frequency, denies urinary hesitancy, denies nocturia, denies incontinence, denies genital sores, denies decreased libido, and denies erectile dysfunction. Physical Exam Vitals & Measurements HR: 82(Peripheral) RR: 16 BP: 128/81 HT: 65 in HT: 164 cm WT: 118 kg WT: 259.6 lb BMI: 43.87 General Appearance: alert, no distress, well nourished, well developed male. Head: normocephalic . Eyes: normal orbit and globe. ENMT: normal examination of external ears. Chest: Lungs CTA, respirations non labored. Cardiovascular: regular rate and rhythm. Abdomen: soft, non distended, no tenderness, no mass or organomegaly, no hernia. Genitourinary: normal scrotum, normal testes, abnormal urethra, stricture, normal epididymis, normal vas deferens/spermatic cord. Flank Pain: none. Bladder: nonpalpable. Penis: normal shaft, normal glans. Prostate: normal prostate, estimated weight 35 gms, no hard nodule observed. Lymph Nodes: unremarkable palpation of the cervical area. Skin: warm, dry, no bruising. Psychiatric: cooperative, affect appropriate for age, normal judgement, euthymic mood. Assessment/Plan 1. Stricture of urethral meatus in male (N35.911: Unspecified urethral stricture, male, meatal) Educated pt that we will need to do a cystoscopy/UD under General anesthesia. Discussed with pt that after this procedure we can schedule to do a Cysto/UD IO every 6 months initially as management. If pt has any concerns he can contact our office. Pt understands and acknowledges. Will schedule Cysto with UD. The procedure risks, benefits, details, and treatment alternatives have been discussed with the patient. These include bleeding, infection, recurrent scar in over 50%, need for repeat dilation or other procedures, no symptom relief with dilation, among others. Full informed consent has been obtained. Will order General anesthesia. 2. BPH with obstruction/lower urinary tract symptoms (N40.1: Benign prostatic hyperplasia with lower urinary tract symptoms) Overall pt states that he strains to void, urine sprays, voids hourly, dysuria, and nocturia 2-3x. 3. Feeling of incomplete bladder emptying (R39.14: Feeling of incomplete bladder emptying) PVR 38mL. 4. History of meatotomy of urethra (Z98.890: Other specified postprocedural states) Pt states about 5 years ago he had a procedure where they cut his urethra, opened it up, and placed a cath for 7 to 10 days.( meatotomy) 5. Prostate cancer screening (Z12.5: Encounter for screening for malignant neoplasm of prostate) pt denies having a PSA. Will give pt a slip to get his PSA drawn. Follow-up With When Contact Information Uvaldo FALL MD, URL [facility] [address] [place] [address] [phone] Additional Instructions: Patient Education Acute Urinary Retention, Male, [id number] I, Tonia Stapleton, personally scribed for Dr. Fall on 07/18/2022 15:24:34. . Documentation recorded by the scribe, Tonia Stapleton, accurately reflects the services(s) I performed and decisions made by me. Problem List/Past Medical History Ongoing BPH with obstruction/lower urinary tract symptoms Feeling of incomplete bladder emptying History of meatotomy of urethra Prostate cancer screening Stricture of urethral m (more content not included)... Normal [facility] Comment on above: Result Comment: Elec tronically Signed By: Uvaldo FALL MD\.br\Date and Time Signed: 07/18/22 15:26 EDT\.br\Electronically Co-Signed By: Tonia Stapleton MA\.br\Date and Time Co-Signed: 07/18/22 15:24 EDT Vital Signs Date Time Vital Sign Value Performing Clinician Jerica celis 07-18-2022 14:26-0400 Blood Pressure Location Uvaldo FALL [facility] 07-18-2022 14:26-0400 Diastolic blood pressure 81 mm[Hg] Uvaldo FALL [facility] 07-18-2022 14:26-0400 Heart rate 82 /min Uvaldo FALL [facility] 07-18-2022 14:26-0400 Respiratory rate 16 /min Uvaldo FALL [facility] 07-18-2022 14:26-0400 Systolic blood pressure 128 mm[Hg] Uvaldo FALL [facility] Encounters Encounter Date Encounter Type Care Provider Facility Start: 09-16-2022 End: 09-17-2022 ambulatory MD Uvaldo FALL Facility:[facility] Start: 09-16-2022 End: 09-16-2022 Patient encounter procedure Uvaldo FALL [facility] Start: 08-15-2022 End: 08-16-2022 ambulatory MD Uvaldo FALL Facility:[facility] Start: 08-15-2022 End: 08-15-2022 Patient encounter procedure Uvaldo FALL [facility] Start: 08-14-2022 Encounter for preprocedural laboratory examination DR UVALDO FALL [facility] Start: 08-11-2022 End: 08-12-2022 ambulatory NONE LISTED REQUEST Facility:[facility] Start: 08-09-2022 End: 08-10-[address] UVALDO FALL Facility:[facility] Start: 08-09-2022 End: 08-10-2022 Encounter for preprocedural laboratory examination DR UVALDO FALL Facility:[facility] Start: 07-30-2022 Encounter for preprocedural cardiovascular examination DR UVALDO FALL [facility] Start: 07-28-2022 End: 07-29-2022 ambulatory NONE LISTED REQUEST Facility:[facility] Start: 07-18-2022 End: 07-19-2022 ambulatory MD Uvaldo FALL Facility:[facility] Start: 07-18-2022 End: 07-18-2022 Patient encounter procedure Uvaldo FALL [facility] Start: 06-23-[address] OSCAR MILTON Facility :[facility] Start: 06-15-2022 ambulatory MD Uvaldo FALL Facil ity:[facility] Procedures Date Procedure Procedure Detail Performing Clinician Start: 08-11-2022 Cystourethroscopy wi th dilation of urethral stricture Uvaldo FALL Start: 07-28-[address] SHAHRZAD Roach ISTED REQUEST Comment on above: Performed By: #### P [facility] #### [facility] [address] [place] [address] Dr. Riri Mcmahon H/O: surgery History of meatotomy of urethra( Confirmed ) Uvaldo FALL Hemorrhoids (disorder) Blanca FALL Tonsillectomy Uvaldo FALL Immunizations Immunization Date Immunization Notes Care Provider Fa lilian 05-08-2019 tetanus toxoid, redu ravindra diphtheria toxoid, and acellular pertussis vaccine, adsorbed Uvaldo FALL [facility] Payers Date Payer Category Payer Unknown [id number] 2.16.84 [id number] 1970 Unknown [id number] 2.16.84 [id number] 1970 Unknown [id number] 2.16.84 [id number] 1971 Unknown [id number] 2.16.84 [id number] 1971 Unknown [id number] 2.16.8 [id number] 1971 Unknown [id number] 2.16.8 [id number] 1971 Unknown [id number] 2.16.8 [id number] 1971 Unknown [id number] 2.16.8 [id number] 1958 Self-pay [id number] 1958 Unknown [id number] Social History Date Type Detail Facility Start: 10-03-2022 Tobacco smoking status Ex-smoker (fi nding) [facility] Sex Assigned At Male [facility] Functional Status Date Assessment Result Facility 07-18-2022 Functional Status N/A [facility] Hospital Discharge instructions 08-15-2022 Note Date & Type Note Facility 08-15-2022 Hospital Discharg e instructions Follow Up Care 08/15/2022 09:34:18 With:BONITA CEDILLO, Uvaldo Blakely, URL Address: [address] [place] [address]- When: Unknown [facility] Hospital Discharge instructions 07-18-2022 Note Date & Type Note Facility 07-18-2022 Hospital Discharg e instructions Patient Education 07/18/2022 15:15:42 Acute Urinary Retention, Male, Whsv-xi-Dcks Acute Urinary Retention, Male Acute urinary retention means that you cannot pee (urinate) at all, or that you pee too little and your bladder is not emptied completely. If it is not treated, it can lead to kidney damage or other serious problems. Follow these instructions at home: Take smcf-rwx-dphiyow and prescription medicines only as told by your doctor. Ask your doctor what medicines you should stay away from. Do not take any medicine unless your doctor says it is okay to do so. If you were sent home with a tube that drains the bladder (catheter), take care of it as told by your doctor. Drink enough fluid to keep your pee clear or pale yellow. If you were given an antibiotic, take it as told by your doctor. Do not stop taking the antibiotic even if you start to feel better. Do not use any products that contain nicotine or tobacco, such as cigarettes and e-cigarettes. If you need help quitting, ask your doctor. Watch for changes in your symptoms. Tell your doctor about them. If told, track changes in your blood pressure at home. Tell your doctor about them. Keep all follow-up visits as told by your doctor. This is important. Contact a doctor if: You have spasms or you leak pee when you have spasms. Get help right away if: You have chills or a fever. You have a tube that drains the bladder and: ?The tube stops draining pee. ?The tube falls out. You have blood in your pee. Summary Acute urinary retention means that you have problems peeing. It may mean that you cannot pee at all, or that you pee too little. If this condition is not treated, it can lead to kidney damage or other serious problems. If you were sent home with a tube that drains the bladder, take care of it as told by your doctor. Monitor any changes in your symptoms. Tell your doctor about any changes. This information is not intended to replace advice given to you by your health care provider. Make sure you discuss any questions you have with your health care provider. Document Released: 03/20/2009 Document Revised: 12/19/2019 Document Reviewed: 11/03/2017 [employer] Patient Education 2020 [employer]. Follow Up Care 06/15/2022 15:44:44 With:BONITA CEDILLO, Uvaldo Blakely, URL Address: [facility] [address], [place] [address]- [phone] When: Unknown [facility] Evaluation + Plan note 07-18-2022 Note Date & Type Note Facility 07-18-2022 Evaluation + Plan note Diagnostic Tests PendingPSA Total 07/18/22 [facility] Evaluation + Plan note Note Date & Type Note Facility Evaluation + Plan note Future Appointments Appointment Date:09/16/2022 09:45:00 AM Scheduled Provider:Uvaldo FALL MD Location:[facility] Appointment Type:URO Office Visit [facility] Hospital course Narrative Note Date & Type Note Facility Hospital course Narrative No data available for this section [facility] Hospital Discharge instructions Note Date & Type Note Facility Hospital Discharge instructions No data available for this section [facility] Progress note Note Date & Type Note Facility Progress note No data available for this section [facility] Hedy Summary Purpose Family History No Family History Records FoundNo Family History Records Found Advance Directives No Advanced Directives Records FoundNo Advanced Directives Records Found Additional Source Comments Care Team (unrecognized sect ion and content) Personnel Name: Oscar Milton MD Address: [address] [place] [address] Personnel Name: Oscar Milton MD Address: Address: [address] [place] [address] Personnel Name: Oscar Milton MD Address: Address: [address] [place] [address] (unrecognized sect ion and content) No Status Records FoundNo Status Records Found INFORMATION SOURCE (unrecogn ized section and content) DATE CREATED AUTHOR 08/18/2022 [facility] DATE CREATED AUTHOR AUTHOR'S ORGANIZ ATION 09/17/[address] [facility] FOR RECORDS PERTAINING TO PATIENTS WHO ARE OR HAVE BEEN ENROLLED IN A CHEMICAL DEPENDENCY/SUBSTANCEABUSE PROGRAM, SOME INFORMATION MAY BE OMITTED. This clinical summary was aggregated from multiple sources. Caution should be exercised in using it in the provision of clinical care. This summary normalizes information from multiple sources, and as a consequence, information in this document may materially change the coding, format and clinical context of patient data. In addition, data may be omitted in some cases. CLINICAL DECISIONS SHOULD BE BASED ON THE PRIMARY CLINICAL RECORDS. [facility] [employer] provides no warranty or guarantee of the accuracy or completeness of information in this document.
--- NOTE | 2024-05-28 12:55 | XR_ITS ---
The [address] [address] Patient Name: SAIDA CABRERA MRN: [id number] date: 1970 Sex: M Assigned Patient Location: ED.MAIN Current Patient Location: ER Accession/Order Number: [id number] Exam Date: 05/28/2024 12:50 Report Date: 05/28/2024 13:22 At the request of: JENARO MACHADO Procedure: XR chest 1V EXAMINATION: XR chest 1V HISTORY: pain COMPARISON: No relevant comparison available. TECHNIQUE: AP portable FINDINGS: LUNGS: No significant pulmonary parenchymal abnormalities. VASCULATURE: No increased pulmonary vasculature. PLEURA: No pneumothorax, effusion, or pleural thickening. CARDIAC: No cardiomegaly or cardiac silhouette abnormality. MEDIASTINUM: No visible mass or adenopathy. BONES: No fracture or visible bone lesion. OTHER: Negative. XR/XR chest 1V IMPRESSION: No acute cardiopulmonary process. Electronically authenticated by: NEVAEH JEAN Date: 05/28/2024 13:22
--- NOTE | 2024-05-28 13:07 | ED_ITS ---
HPI HPI - General Adult General Chief complaint: Back Pain/Injury Stated complaint: BACK PAIN WHEN SITTING Time Seen by Provider: 05/28/24 12:37 Source: patient Mode of arrival: walk-in Limitations: no limitations History of Present Illness HPI narrative: 54-year-old male presents to the emergency department with complaint of bilateral, mid back pain onset this past Monday. Describes as a spasm feeling. States felt similar to when he was a cigarette smoker. Symptoms have been persistent to today. Today, he was working in another area, was exposed to smoke, which made the symptoms worse. He did ask for and receive a mask. However, due to the way he felt he excused himself and came in for further evaluation. He denies any shortness of breath, chest pain, coughing. Quality:?As above Severity:?Mild Timing:?As above, worse today Context: Normal setting and activity? Modifying factors:?Worse with deep Associated symptoms: Breath none Related Data Home Medications ?Medication ?Instructions ?Recorded ?Confirmed metformin 500 mg tablet 500 mg PO DAILY 05/28/24 05/28/24 semaglutide 0.25 mg or 0.5 mg (2 0.25 mg subcut QWEEK 05/28/24 05/28/24 mg/3 mL) subcutaneous pen injector (Ozempic) simvastatin 20 mg tablet 20 mg PO DAILY 05/28/24 05/28/24 Previous Rx's ?Medication ?Instructions ?Recorded ibuprofen 600 mg tablet 600 mg PO Q8H PRN pain #20 tabs 05/28/24 Allergies Allergy/AdvReac Type Severity Reaction Status Date / Time No Known Drug Allergies Allergy Verified 05/07/23 21:11 Opioid HPI Opioid Management Most Recent Opioid Data: 2 Last Pain Scale 8 05/28/24 13:35 Last MAR Pain Assessment 05/28/24 13:30 Review of Systems 2 ROS0 Constitutional Denies: fever, chills or fatigue Cardiovascular Denies: chest pain or shortness of breath with exertion Respiratory Denies: shortness of breath or cough Gastrointestinal Denies: abdominal pain or nausea Musculoskeletal Reports: back pain; Denies: joint pain Neurological Denies: headache or dizziness Endocrine Denies: fatigue PFSH PFSH Medical History (Updated 05/28/24 @ 13:59 by FAUSTO Bell) Cellulitis and abscess of right leg ?L03.115 - Cellulitis of right lower limb (ICD-10) ?L02.415 - Cutaneous abscess of right lower limb (ICD-10) Cellulitis of leg, right ?L03.115 - Cellulitis of right lower limb (ICD-10) Surgical History (Updated 05/07/23 @ 23:48 by Stefany Hairston) History of tonsillectomy ?Z90.89 - Acquired absence of other organs (ICD-10) H/O dilation of urethra ?Z98.890 - Other specified postprocedural states (ICD-10) Family History (Updated 05/07/23 @ 23:48 by Stefany Hairston) Father Heart failure Mother Heart failure Social History (Updated 05/07/23 @ 23:49 by Stefany Hairston) Smoking status: Former smoker Non-prescribed substance use: denies use Previous occupational history: [employer] Highest level of school completed/degree received: high school graduate Are you now , , , , never or living with a partner: Little interest or pleasure in doing things: not at all Feeling down, depressed, or hopeless: not at all Feel stressed/tense/nervous/anxious/difficulty sleeping: not at all Do you think of yourself as: straight/heterosexual Gender Identity: male Exam Constitutional Vital Signs, click to edit/add: Last Vital Signs Temp 97.9 F 05/28/24 12:42 Pulse 84 05/28/24 12:42 Resp 18 05/28/24 12:42 BP 163/91 H 05/28/24 12:42 Pulse Ox 97 05/28/24 12:42 O2 Del Method Room Air 05/28/24 12:42 Common normals: no apparent distress, oriented x3 and alert HENWI Common normals: normocephalic, head/scalp atraumatic and external nose normal Head and scalp: normocephalic and atraumatic Respiratory Common normals: normal respiratory effort and clear to auscultation bilaterally Auscultation: clear to auscultation bilaterally Cardio Common normals: regular rate, regular rhythm and no murmurs Rate: regular rate Rhythm: regular rhythm Back & Pelvis Thoracic spine/upper back: normal to inspection; no thoracic spinal tenderness and no paraspinal muscle tenderness Lumbar spine/lower back: normal to inspection; no lumbar spinal tenderness, no paraspinal muscle tenderness and no paraspinal muscle spasm Other: Patient locating discomfort to area circled in picture below (approximate). No tenderness. No swelling, ecchymosis, discoloration, crepitus, deformity, instability, warmth. Back image (male): 2 1. Locates pain 2. Locates pain Extremity Common normals: normal to inspection Neuro Common normals: oriented x3, no focal motor deficits, no sensory deficits noted and gait normal Sensorium/orientation: alert Psych Common normals: thought process normal, cooperative and affect normal Thought process: normal thought process Course Reevaluation(s) Reevaluation #1: Notes improvement of his symptoms after treatment. Discussed with patient results, plan, and disposition. He is agreeable with plan Time: 13:56 Vital Signs Vital signs: Vital Signs Temperature 97.9 F 05/28/24 12:42 Pulse Rate 84 05/28/24 12:42 Respiratory Rate 18 05/28/24 12:42 Blood Pressure 163/91 H 05/28/24 12:42 Pulse Oximetry 97 05/28/24 12:42 Oxygen Delivery Method Room Air 05/28/24 12:42 Temperature 97.9 F 05/28/24 12:42 Pulse Rate 84 05/28/24 12:42 Respiratory Rate 18 05/28/24 12:42 Blood Pressure 163/91 H 05/28/24 12:42 Pulse Oximetry 97 05/28/24 12:42 Oxygen Delivery Method Room Air 05/28/24 12:42 Medical Decision Making MDM Narrative Medical decision making narrative: This is a pleasant 54-year-old male who presents to the emergency department complaining of bilateral mid back pain. Onset Monday. Pain worsens with deep breath. Describes as a spasm. Similar to pain he experienced when he was a cigarette smoker. Pain worsened today while at work as he believes he was exposed to noxious, smoky odor and an area of work he does not normally work. He denies any chest pain, shortness of breath, cough, fever, chills, specific injury. On arrival, afebrile vital signs are stable. Exam, nontoxic, well-appearing patient in no distress. Heart regular rate and rhythm. Lung sounds clear and equal bilaterally. He denies any tenderness on palpation of the entire back. No swelling, ecchymosis, discoloration, crepitus, deformity, instability, warmth. Chest x-ray imaging, per radiologist reveals no acute findings Favor posterior chest wall inflammation Pneumonia less likely based on imaging PE less likely based on history and physical exam. He is not tachycardic or hypoxic. He denies any shortness of breath. Disposition ? The patient was discharged. Plan: Patient will be discharged to home. Condition at time of disposition: stable and improved ? Advised to follow up with primary provider. Advised to return for any worsening and/or development of new, concerning signs or symptoms PLEASE NOTE: Portions of the medical record may have been produced using electronic wool mixer and may contain errors with respect to translation of words which may not have been identified prior to finalization of the chart. Medical Records Medical records reviewed: Yes I reviewed the patient's medical records Imaging Data Chest x-ray: Radiologist's impression: ITS Impressions Chest X-Ray 05/28/24 12:55 IMPRESSION: No acute cardiopulmonary process. Electronically authenticated by: NEVAEH JEAN Date: 05/28/2024 13:22 Discharge Plan Discharge Stand Alone Forms: Work/School Release, Portal Instructions Chief Complaint: Back Pain/Injury Clinical Impression: Mid-back pain, acute Patient Disposition: Home, Self-Care Time of Disposition Decision: 13:59 Condition: Good Prescriptions / Home Meds: New ibuprofen 600 mg tablet 600 mg PO Q8H PRN (Reason: pain) Qty: 20 0RF No Action metformin 500 mg tablet 500 mg PO DAILY simvastatin 20 mg tablet 20 mg PO DAILY Ozempic 0.25 mg or 0.5 mg (2 mg/3 mL) pen injector 0.25 mg subcut QWEEK Rx Instructions: for 4 weeks Print Language: Syriac Instructions: Back Pain (ED) Referrals: Vivek Milton MD [Primary Care Provider] - 1 week Discharge Date/Time: 05/28/24 14:24
[2024-05-28] MEDS: KETOROLAC TROMETHAMINE 30 MG/ML VIAL IM (13:30)
== END 2024-05-28 14:24 | disposition home or self-care (01) ==
PROVIDERS: Emergency Provider Emergency Medicine; PCP Family Medicine
DX: M54.9 Dorsalgia, unspecified (principal); Z87.891 Personal history of nicotine dependence
CPT/HCPCS: 71045; 96372; 99284; J1885

== ENCOUNTER 2024-06-14 10:04 | Outpatient (OUT) | payer BC, SELFPAY ==
[2024-06-14 10:23] LABS: Basophils Percent Auto 0.3 % (0.2-2.0); Eosinophils Absolute Auto 0.2 10^3/uL (0.0-0.7); Hemoglobin 14.3 g/dL (14.0-18.0); Immature Granulocytes Abs Auto 0.07 10^3/uL (0.00-0.03); Immature Granulocytes Pct Auto 0.6 % (0.0-0.5); Lymphocytes Absolute Auto 2.3 10^3/uL (1.2-3.8); Lymphocytes Percent Auto 20.3 % (20.5-60.0); Mean Corpuscular HGB Conc 30.4 g/dL (29.9-35.2); Mean Corpuscular Hemoglobin 25.5 pg (25.9-34.0); Mean Corpuscular Volume 83.9 fL (80.0-94.0); Mean Platelet Volume 9.7 fL (9.5-13.5); Monocytes Absolute Auto 0.6 10^3/uL (0.3-0.8); Monocytes Percent Auto 5.6 % (1.7-12.0); Neutrophils Percent Auto 71.2 % (43.0-75.0); Platelet Count 265 10^3/uL (150-450); Red Cell Distribution Width 15.1 % (11.0-15.0); White Blood Count 11.2 10^3/uL (4.0-11.0)
[2024-06-14 11:01] LABS: Estimated Average Glucose 157 mg/dL; Glycohemoglobin A1C 7.1 % (4.5-6.2)
[2024-06-14 11:43] LABS: Alanine Aminotransferase 24 U/L (16-63); Albumin Globulin Ratio 0.9; Albumin Level 3.7 g/dL (3.4-5.0); Alkaline Phosphatase 93 U/L (46-116); Anion Gap 11.8; Aspartate Amino Transferase 9 U/L (15-37); BUN Creatinine Ratio 15.5; Bilirubin Total 0.9 mg/dL (0.2-1.0); Calcium 9.2 mg/dL (8.5-10.1); Carbon Dioxide 29.8 mmol/L (21.0-32.0); Chloride 105 mmol/L (98-107); Cholesterol 151 mg/dL (<=200); Estimated GFR (African America >60 (>=60); Estimated GFR (Non-African Ame >60 (>=60); Free T3 2.71 pg/mL (2.18-3.98); Globulin 4.1 g/dL; Glucose 113 mg/dL (74-106); HDL Cholesterol 38 mg/dL (40-60); Potassium 4.6 mmol/L (3.5-5.1); Sodium 142 mmol/L (136-145); Thyroid Stimulating Hormone 1.781 uIU/mL (0.358-3.740); Total Protein 7.8 g/dL (6.4-8.2); Triglycerides 96 mg/dL (<=150); VLDL CHOLESTEROL 19.2 mg/dL
[2024-06-14 12:22] LABS: Prostate Specific Antigen Scrn 1.79 ng/mL (<=4.00)
== END 2024-06-14 10:05 | disposition home or self-care (01) ==
LOC: LAB 10:06
PROVIDERS: PCP Family Medicine; Visit Provider Family Medicine
DX: Z00.00 Encounter for general adult medical examination without abnormal findings (principal)
CPT/HCPCS: 36415; 80053; 80061; 83036; 84436; 84443; 84481; 85025; G0103

== ENCOUNTER 2025-08-22 12:12 | Outpatient (OUT) | payer BC, SELFPAY ==
--- OUTSIDE RECORDS SUMMARY | 2024-05-10 04:30 | XMS_ITS ---
Author Organization [facility] in [place] Address [address] [place] [address] Care Team Providers Care Hospital Receptionist Name Role Phone Jace Milton Primary Care Provider [phone] REASON FOR VISIT check up Encounters Encounter Location Date Provider Diagnosis [facility] [address] [place] [address] 05/10/2024 Jace Milton Plan Of Treatment No Information Progress Notes * Pako CABRERADOB: 1 (55 yo M)Acc No.[id number]:05/10/2024 UNLOCKED PROGRESS NOTE Progress Note Patient: Pako MAHAN :?Vivek Milton (TTC), MDDOB:1970???Age: 54 Y???Sex:MaleDate:4Phone:[phone]:[address] [place], [place] [id number] Subjective: * Chief Complaints: * 1 . Check up. * Medical History: Objective: * Vitals: Assessment: Plan: * Treatment: * * Electronic signature of Jace Milton MD, [id number] on 08/22/2025 at 12:19 PM EST Sign off status: PendingVisit Status:?N/S N/C (No Show/No Charge) * Provider: Bolivar Milton MD (TTC) Date: 05/10/2024 Generated for Printing/Faxing/eTransmitting on:?08/22/2025 12:19 PM EST
--- OUTSIDE RECORDS SUMMARY | 2024-07-22 12:00 | XMS_ITS ---
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 BACK PAIN IN MIDDLE OF BACK. * Medical History: Objective: * Vitals: Assessment: Plan: * Treatment: * * Electronic signature of Jace Milton MD, [id number] on 08/22/2025 at 12:19 PM EST Sign off status: PendingVisit Status:?CANC (Cancelled) * Provider: Bolivar Milton MD (TTC) Date: 1 Generated for Printing/Faxing/eTransmitting on:?08/22/2025 12:19 PM EST
--- OUTSIDE RECORDS SUMMARY | 2025-03-14 06:00 | XMS_ITS ---
Author Organization The [facility] [place] Address [address] [place] [address] Care Team Providers Care Ship Purser Name Role Phone Jace Milton Primary Care Provider [phone] REASON FOR VISIT CHECK UP Encounters Encounter Location Date Provider Diagnosis [facility] [address] [place] [address] 03/14/2025 Jace Milton Plan Of Treatment No Information Progress Notes * Pako CABRERADOB: 1 (55 yo M)Acc No.[id number]:03/14/2025 UNLOCKED PROGRESS NOTE Progress Note Patient: Pako MAHAN :?Vivek Milton (TTC), MDDOB:1970???Age: 55 Y???Sex:MaleDate:03/14/2025Phone:[phone]:[address] [place], [place] [id number] Subjective: * Chief Complaints: * 1 . CHECK UP. * Medical History: Objective: * Vitals: Assessment: Plan: * Treatment: * * Electronic signature of Jace Milton MD, [id number] on 08/22/2025 at 12:19 PM EST Sign off status: PendingVisit Status:?N/S N/C (No Show/No Charge) * Provider: Bolivar Milton MD (TTC) Date: 0 03/14/2025 Generated for Printing/Faxing/eTransmitting on:?08/22/2025 12:19 PM EST
--- OUTSIDE RECORDS SUMMARY | 2025-08-22 12:20 | XMS_ITS | Patient Health Record ---
Author Organization [facility] [place] Address [address] [place] [address] Care Team Providers Care Spice Grinder Name Role Phone Karine Jace Primary Care Provider Allergies No Known Allergies Reason For Referral Diagnosis 1 Urethral stricture ( N35.919) Referral Organization [facility] Referring Provider First Name Jace Referring Provider Last Name Karine Referring Provider Speciality Family [facility]ario Referred Provider Uvaldo Fall Referred Provider Specialty Urology Referral Priority Routine Medications Medication SIG (Take, Route, Frequency, Duration) Notes Start Date End Date Status Test Strips - Use one test strip a s directed once daily before eating; Duration: 90 days 05/15/2023ctiveOzempic (2 MG/DOSE) 8 MG/3ML 2 mg Subcutaneous weekly This is right dose This is right Dose5ActiveLancets -1 lancet as directed once daily; Duration: 90 days05/15/2023ctivemetFORMIN HCl 500 MG1 tablet with a meal Orally Twice a day; Duration: 30 day(s)07/12/2023ctiveGlucometer -- - as directed; Duration: 365 days05/15/2023ctiveOzempic (0.25 or 0.5 MG/DOSE) 2 MG/3MLInject 0.5mg Subcutaneous once weekly; Duration: 28 daysActiveSimvastatin 20 MG1 tablet in the evening Orally Once a day; Duration: ctive Social History Tobacco Use: Social History Observation Description Date Details (start date - stop date) Former Smoker 10/16/1984 - 10/16/2022 Tobacco Use/Smoking Question Answer Notes Patient is a former smoker When did you start smoking?10/16/1984When did you stop smoking?10/16/2022lcohol Screen (Audit-C) Question Answer Notes Did you have a drink containing alcohol in the p ast year? Yes How often did you have 6 or more drinks on one occasion in the past year?Two to four times a month (2 points)How many drinks did you have on a typical day when you were drinking in the past year?5 or 6 drinks (2 points)How often did you have a drink containing alcohol in the past year?Weekly (3 points)Points7 InterpretationPositiveAUDIT-C (Standard) Question Answer Notes Did you have a drink containing alcohol in the p ast year? Yes How often did you have six or more drinks on one occasion in the past year?2 to 4 times a month (2 points)How many drinks did you have on a typical day when you were drinking in the past year?7 to 9 drinks (3 points)How often did you have a drink containing alcohol in the past year?2 to 4 times a month (2 points)Points7 InterpretationPositive Problems Problem Type SNOMED Code ICD Code Onset Dates Problem Status W/U Status Risk Notes Problem Type II diabetes garima litus without complication (860217456) Type 2 diabetes mellitus without complications (E11.9) ActiveconfirmedProblemObstructive sleep apnea syndrome (disorder) (85966929) Obstructive sleep apnea (adult) (pediatric) (G47.33)ActiveconfirmedProblem Snoring (88445610)Snoring (R06.83)ActiveconfirmedProblemAdult health examination (570687640)Encounter for general adult medical examination without abnormal findings (Z00.00)ActiveconfirmedProblemWell adult (152489715)Well adult (Z00.00) ActiveconfirmedProblemBenign prostatic hypertrophy without outflow obstruction (591887585)BPH (benign prostatic hypertrophy) (N40.0)ActiveconfirmedProblemPure hypercholesterolemia (815080468)Pure hypercholesterolemia, unspecified (E78.00) ActiveconfirmedProblemStricture of membranous urethra (disorder) (1204109821) Other membranous urethral stricture, 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)ActiveconfirmedProblem Urethral stricture (33425384)Urethral stricture (N35.919)Activeconfirmed Vital Signs Blood pressure diastolic 94 mm Hg 08/07/2025 Ihscya55 in08/07/2025lood pressure ojiegpse380 mm Hg08/07/20250484Jkpcsw497.2 lbs 08/07/2025BMI45.17 kg/m208/07/2025 Encounters Encounter Location Date Provider Diagnosis [facility] [address] [place] [address] 05/09/2025 Jace Hoy Acute bronchitis, unspecified organism J20.9 [facility] [address] [place] [address] 08/07/2025 Jace Hoy Well adult Z00.00 an d Urethral stricture N35.919 [facility] [address] [place] [address] 10/14/2024 Jace Hoy Well adult Z00.00 [facility] [address] [place] [address] 05/07/2025 Jace Hoy Assessments Encounter Date Diagnosis (ICD Code) Assessment Notes Treatment Notes Treatment Clinical Notes Section Notes 05/09/2025 Acute bronchitis, unspecified or ganism (ICD-10 - J20.9) Rest and drink more liquids, especially water. You may use a humidifier or vaporizer to help keep the drainage moist. Zpog-ekq-shzgzrt Nasal Saline may help the stuffy and runny nose. Use Ibuprofen and or Tylenol as needed for fever, chills, body aches or pain. Children 5 years old should not be given pqww-gtb-uongekj cough and cold medications such as guaifenesin and dextromethorphan. If you're over age 5, you may try qqaj-dnb-ofabkij cold medications such as guaifenesin and dextromethorphan, or multi-symptom cold reliever such as Dayquil to help reduce the symptoms. Antibiotics have been pre scribed. You should take these until completed and follow the directions. Antibiotics can sometimescause upset stomach, and in rare cases, serious allergic reactions or serious gastrointestinal problems. If you start having severe abdominal pain, severe vomiting, or bloody diarrhea, you should be r eevaluated by your physician or urgent care immediately. Follow up with your Primary Care Provider or return to clinic if symptoms do not improve within 3-5 days. If you develop severe symptoms such as shortness of breath, repeated vomiting, coughing up blood, or chest pain you should go to the emergency room or call [id number] adult (ICD-10 - Z00.00)08/07/2025Urethral stricture (ICD-10 - N35.919)10/14/2024Well adult (ICD-10 - Z00.00) Plan Of Treatment Pending Test Test Name Order Date CMP (COMPLETE METABOLIC PANEL) 3 CMP (COMPLETE METABOLIC PANEL) 4 HEMOGLOBIN A1C (GLYCO) 05/24/2024 HEMOGLOBIN A1C (GLYCO) 08/07/2025 HEMOGLOBIN A1C (GLYCO) 05/12/2023 INSULIN, TOTAL 05/12/2023 LIPID PANEL (CHOL/TRIG/HDL/LDL) 05/12/20 23 LIPID PANEL (CHOL/TRIG/HDL/LDL) 05/24/20 24 LIPID PANEL (CHOL/TRIG/HDL/LDL) 08/07/20 25 CBC WITH DIFF 05/24/2024 CBC WITH DIFF 05/12/2023 PSA, PROSTATE-SPECIFIC ANTIGEN 3 Sleep study - Diagnostic Polysonogram PSA, TOTAL 05/24/2024 LIPID PROFILE 07/17/2023 LIVER PROFILE 07/17/2023 THYROID PANEL (T4/TSH/FREE T3) 5 THYROID PANEL (T4/TSH/FREE T3) 4 THYROID PANEL (T4/TSH/FREE T3) 3 PSA, SCREENING 08/07/2025 CMP (COMP MET PIERCE) w/eGFR CKD-EPI 2024 CBC WITH DIFF 08/07/2025 Insurance Providers Payer Name Payer Address Payer Phone Subscriber Number Group Number Insured Name Patient Relationship to Insured Coverage Start Date Coverage End Date [facility] [address] [place] [address] [id number] Yassine Mancia - patient is the [id number] 2022 Medical (General) History Medical History History ICD Code BPH (benign prostatic hypertrophy) N40.0 Other membranous urethral stricture, mal e N35.813 Surgical History Surgery Date(Month/Year) Urethral correction surgery 2021 Tonsillectomy Hospitalization History Reason Date(Month/Year) cellulitis 05/07 Pre-diabetes 06/2023
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
[2025-08-22 12:49] LABS: Hematocrit 46.6 % (42.0-54.0); Hemoglobin 14.8 g/dL (14.0-18.0); Immature Granulocytes Abs Auto 0.03 10^3/uL (0.00-0.03); Immature Granulocytes Pct Auto 0.4 % (0.0-0.5); Lymphocytes Absolute Auto 1.6 10^3/uL (1.2-3.8); Mean Corpuscular HGB Conc 31.8 g/dL (29.9-35.2); Mean Corpuscular Hemoglobin 25.9 pg (25.9-34.0); Mean Corpuscular Volume 81.5 fL (80.0-94.0); Platelet Count 255 10^3/uL (150-450); Red Blood Count 5.72 10^6/uL (4.70-6.10); White Blood Count 8.1 10^3/uL (4.0-11.0)
[2025-08-22 13:49] LABS: Alanine Aminotransferase 27 U/L (16-63); Albumin Globulin Ratio 0.9; Albumin Level 3.7 g/dL (3.4-5.0); Alkaline Phosphatase 100 U/L (46-116); Anion Gap 11.8; Aspartate Amino Transferase 12 U/L (15-37); Blood Urea Nitrogen 12.0 mg/dL (7.0-18.0); Calcium 8.9 mg/dL (8.5-10.1); Carbon Dioxide 28.8 mmol/L (21.0-32.0); Chloride 103 mmol/L (98-107); Cholesterol 210 mg/dL (<=200); Estimated GFR (African America >60 (>=60 mL/min/1.73m^2); Estimated GFR (Non-African Ame >60 (>=60 mL/min/1.73m^2); Free T3 2.81 pg/mL (2.18-3.98); Globulin 4.0 g/dL; Glucose 154 mg/dL (74-106); HDL Cholesterol 35 mg/dL (40-60); Potassium 4.6 mmol/L (3.5-5.1); Sodium 139 mmol/L (136-145); Thyroid Stimulating Hormone 3.458 uIU/mL (0.358-3.740); Total Protein 7.7 g/dL (6.4-8.2); Triglycerides 163 mg/dL (<=150); VLDL CHOLESTEROL 32.6 mg/dL
== END 2025-08-22 12:13 | disposition home or self-care (01) ==
LOC: LAB 12:17
PROVIDERS: PCP Family Medicine; Visit Provider Family Medicine
DX: Z00.00 Encounter for general adult medical examination without abnormal findings (principal); Z12.5 Encounter for screening for malignant neoplasm of prostate
CPT/HCPCS: 36415; 80053; 80061; 83036; 84436; 84443; 84481; 85025; G0103

== ENCOUNTER 2025-08-29 08:35 | Outpatient (OUT) | payer BC, SELFPAY ==
--- OUTSIDE RECORDS SUMMARY | 2025-03-14 06:00 | XMS_ITS ---
Author Organization The [facility] [place] Address [address] [place] [address] Care Team Providers Care Sales Representative Education Courses Name Role Phone Jace Milton Primary Care Provider [phone] REASON FOR VISIT CHECK UP Encounters Encounter Location Date Provider Diagnosis [facility] [address] [place] [address] 03/14/2025 Jace Milton Plan Of Treatment No Information Progress Notes * Pako CABRERADOB: 1 (55 yo M)Acc No.[id number]:03/14/2025 UNLOCKED PROGRESS NOTE Progress Note Patient: Pako MAHAN :?Vivek Milton (TTC), MDDOB:1970???Age: 55 Y???Sex:MaleDate:03/14/2025Phone:[phone]:[address] [place], [place] [id number] Subjective: * Chief Complaints: * 1 . CHECK UP. * Medical History: Objective: * Vitals: Assessment: Plan: * Treatment: * * Electronic signature of Jace Milton MD, [id number] on 08/29/2025 at 08:38 AM EST Sign off status: PendingVisit Status:?N/S N/C (No Show/No Charge) * Provider: Bolivar Milton MD (TTC) Date: 0 03/14/2025 Generated for Printing/Faxing/eTransmitting on:?08/29/2025 08:38 AM EST
--- NOTE | 2025-08-29 08:39 | ECG_ITS ---
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
--- OUTSIDE RECORDS SUMMARY | 2025-08-29 08:39 | XMS_ITS | Patient Health Record ---
Author Organization [facility] in [place] Address [address] [place] [address] Care Team Providers Care Epic Kaleidoscope Analyst Name Role Phone Jace Milton Primary Care Provider Allergies No Known Allergies Results Component Value Reference Range Notes GLYCOHEMOGLOBIN A1C Reviewed date:08/24/2025 04:28:37 PM Interpretation: Performing Lab: Notes/Report: [facility] , Glycohemoglobin A1C 7.9 4.5-6.2 % > 7.0 ADA RECOMMENDED LIMIT 4.0 - 6.0 ACTION SUGGESTED ADA THERAPEUTIC TARGET < 7.0 Estimated Average Glucose 180 Performing Lab:see noteML - [facility] LBPSA SCREENING Reviewed date:08/24/2025 04:28:37 PM Interpretation: Performing Lab: Notes/Report: [facility] ,Prostate Specific Antigen Scrn1.68<=4.00 ng/mLPerforming Lab:see noteML - [facility] LBPROF 14(COMP METB) Reviewed date:08/24/2025 04:28:37 PM Interpretation: Performing Lab: Notes/Report: [facility] ,Nikfcw720496-294 mmol/LPotassium4.63.5-5.1 mmol/EGkmpgeam07680-179 mmol/LCarbon Llgidvl77.821.0-32.0 mmol/LAnion Gap11.3Suinnru14861-644 mg/dLBlood Urea Reutlhlh78.07.0-18.0 mg/dLCreatinine0.720.70-1.30 mg/dLEstimated GFR ( Ena>60>=60 mL/min/1.73m 2Estimated GFR (Non- Kalani>60>=60 mL/min/1.73m 2BUN Creatinine Ratio16.1Qwozfgm4.98.5-10.1 mg/dLBilirubin Total1.20.2-1.0 mg/dL Aspartate Amino Pwvlboxvhus2036-11 U/LAlanine Dnodnsyhawejloer2664-39 U/L Alkaline Uoekwfctwsg07832-329 U/LTotal Protein7.76.4-8.2 g/dLAlbumin Level3.7 3.4-5.0 g/dLGlobulin4.0Albumin Globulin Ratio0.9Performing Lab:see noteML - [facility] LBLIPID PROFILE Reviewed date:08/24/2025 04:28:37 PM Interpretation: Performing Lab: Notes/Report: [facility] ,Bdkczwbsaohqp234<=150 mg/aLAilosghemvx694<=200 mg/dLHDL Mpeeukettqc9450-81 mg/dL > or =60 mg/dl - LOW CARDIOVASCULAR RISK <40 mg/dl - HIGH CARDIOVASCULAR RISK LDL Cholesterol Olececdmge400.0 <100 mg/dl OPTIMAL 160-189 mg/dl HIGH >190 mg/dl VERY HIGH 100-129 mg/dl NEAR OR ABOVE OPTIMAL 130-159 mg/dl BORDERLINE HIGH VLDL KGPZIDZSHSL04.6Chol HDL Ratio6.0 4.4 - 7.1 AVERAGE RISK 7.1 - 11.0 MODERATE RISK 3.3 - 4.4 LOW RISK >11.0 HIGH RISK Performing Lab:see note - [facility] LBFREE T3 Reviewed date:08/24/2025 04:28:37 PM Interpretation: Performing Lab: Notes/Report: [facility] ,Free T32.812.18-3.98 pg/mLPerforming Lab:see note - [facility] LB CBC AUTO DIFF Reviewed date:08/24/2025 04:28:37 PM Interpretation: Performing Lab: Notes/Report: [facility] ,White Blood Count8.14.0-11.0 10 3/uLRed Blood Count5.724.70-6.10 10 6/uL Hylocyptjl97.814.0-18.0 g/vQBaomqgwybq98.642.0-54.0 %Mean Corpuscular Prrnzp81.5 80.0-94.0 fLMean Corpuscular Bhnuqyehug04.925.9-34.0 pgMean Corpuscular HGB Conc 31.829.9-35.2 g/dLRed Cell Distribution Width14.211.0-15.0 %Platelet Aivqc392 150-450 10 3/uLMean Platelet Volume9.49.5-13.5 fLNeutrophils Percent Auto70.9 43.0-75.0 %Lymphocytes Percent Auto20.120.5-60.0 %Monocytes Percent Auto5.71.7- 12.0 %Eosinophils Percent Auto2.70.9-7.0 %Basophils Percent Auto0.20.2-2.0 % Immature Granulocytes Pct Auto0.40.0-0.5 %Neutrophils Absolute Auto5.71.4-6.5 10 3/uLLymphocytes Absolute Auto1.61.2-3.8 10 3/uLMonocytes Absolute Auto0.50.3-0.8 10 3/uLEosinophils Absolute Auto0.20.0-0.7 10 3/uLBasophils Absolute Auto0.00.0- 0.1 10 3/uLImmature Granulocytes Abs Auto0.030.00-0.03 10 3/uLPerforming Lab:see noteML - [facility] LBTSH Reviewed date:08/24/2025 04:28:37 PM Interpretation: Performing Lab: Notes/Report: [facility] ,Thyroid Stimulating Hormone3.4580.358-3.740 uIU/mLPerforming Lab:see noteML - [facility] LBT4 Reviewed date:08/24/2025 04:28:37 PM Interpretation: Performing Lab: Notes/Report: [facility] ,T4 Thyroxine7.904.50-12.10 ug/dLPerforming Lab:see noteML - [facility] LB Reason For Referral Diagnosis 1 Urethral stricture ( N35.919) Referral Organization [facility] Referring Provider First Name Jace Referring Provider Last Name Karine Referring Provider Speciality [facility] rosario Referred Provider Uvaldo Fall Referred Provider Specialty Urology Referral Priority Routine Medications Medication SIG (Take, Route, Frequency, Duration) Notes Start Date End Date Status Test Strips - Use one test strip a s directed once daily before eating; Duration: 90 days 05/15/2023ctiveOzempic (2 MG/DOSE) 8 MG/3ML 2 mg Subcutaneous weekly This is right dose This is right Dose08/07/2025tiveLancets -1 lancet as directed once daily; Duration: [...] Type II diabetes garima litus without complication (071339919) Type 2 diabetes mellitus without complications (E11.9) ActiveconfirmedProblemObstructive sleep apnea syndrome (disorder) (27504863) Obstructive sleep apnea (adult) (pediatric) (G47.33)ActiveconfirmedProblem Snoring (38911483)Snoring (R06.83)ActiveconfirmedProblemAdult health examination (285897978)Encounter for general adult medical examination without abnormal findings (Z00.00)ActiveconfirmedProblemWell adult (622048035)Well adult (Z00.00) ActiveconfirmedProblemBenign prostatic hypertrophy without outflow obstruction (986584685)BPH (benign prostatic hypertrophy) (N40.0)ActiveconfirmedProblemPure hypercholesterolemia (117498328)Pure hypercholesterolemia, unspecified (E78.00) ActiveconfirmedProblemStricture of membranous urethra (disorder) (4516960311) Other membranous urethral stricture, 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)ActiveconfirmedProblem Urethral stricture (09185000)Urethral stricture (N35.919)Activeconfirmed Vital Signs Blood pressure diastolic 94 mm Hg 08/07/2025 Ehcxre23 in08/07/2025lood pressure psxncowx853 mm Hg08/07/20257630Zhevfn043.2 lbs 08/07/2025BMI45.17 kg/m208/07/2025 Encounters Encounter Location Date Provider Diagnosis [facility] [address] [place] [address] 10/14/2024 Jace [facility] adult Z00.0 0 [facility] [address] [place] [address] 05/07/2025 Jace Hoy [facility] [place] [address] [facility] [place] [address]/25/2025Doug HoyAcute bronchitis, unspecified organism J20.9 [facility] [place] [address] 08/07/2025[facility] Z00.00 and Urethral stricture N35.919 Assessments Encounter Date Diagnosis (ICD Code) Assessment Notes Treatment Notes Treatment Clinical Notes Section Notes 05/09/2025 Acute bronchitis, unspecified or ganism (ICD-10 - J20.9) Rest and drink more liquids, especially water. You may use a humidifier or vaporizer to help keep the drainage moist. Ungv-afn-dmkdwyz Nasal Saline may help the stuffy and runny nose. Use Ibuprofen and or Tylenol as needed for fever, chills, body aches or pain. Children 5 years old should not be given uzkg-oga-avzdlor cough and cold medications such as guaifenesin and dextromethorphan. If you're over age 5, you may try hles-pez-otjtxrf cold medications such as guaifenesin and dextromethorphan, [...] go to the emergency room or call [id number] adult (ICD-10 - Z00.00)08/07/2025Urethral stricture (ICD-10 - [...] Insured Coverage Start Date Coverage End Date [employer] [facility] [address] [place] [address] [id number] Yassine Mancia - patient is the [id number] 2022 Medical (General) History Medical History History ICD Code BPH (benign prostatic hypertrophy) N40.0 Other membranous urethral stricture, mal e N35.813 Surgical History Surgery Date(Month/Year) Tonsillectomy Urethral correction ocxjdnm0388Ciyrckukyehyslc History Reason Date(Month/Year) cellulitis 05/07 Pre-diabetes 06/2023
--- NOTE | 2025-08-29 10:56 | P.GSHP_ITS ---
History of Present Illness History of Present Illness Chief complaint: uretheral stricture Narrative: Mr. Pako Mancia is a pleasant 55-year-old male who presents presurgical testing with complaints of feeling that he does not empty his bladder completely. He is scheduled with Dr. Fall on 09/02/2025 for cystoscopy\UD with Nunez sounds for the diagnosis of urethral stricture. Review of Systems ROS Narrative REVIEW OF SYSTEMS: Negative except as stated in HPI, ten or more systems reviewed. Constitutional: No fever, chills, weakness ENT: No sore throat or epistaxis Cardiovascular: No edema, chest pain, palpitations, or activity intolerance Respiratory: No shortness of breath, cough, or wheezing Musculoskeletal: No joint pain or swelling Gastrointestinal: No abdominal pain, constipation, diarrhea, or vomiting Genitourinary: No dysuria or hematuria. Complains of incomplete bladder emptying. Neurological: No numbness, tingling, weakness, or headache Psychiatric: No mood changes PFSH PFSH Medical History (Updated 08/29/25 @ 10:59 by Rosa Alcala) Type II diabetes mellitus ?E11.9 - Type 2 diabetes mellitus without complications (ICD-10) Mid-back pain, acute ?M54.9 - Dorsalgia, unspecified (ICD-10) Hemorrhoid ?K64.9 - Unspecified hemorrhoids (ICD-10) Sleep apnea ?G47.30 - Sleep apnea, unspecified (ICD-10) High cholesterol ?E78.00 - Pure hypercholesterolemia, unspecified (ICD-10) Prediabetes ?R73.03 - Prediabetes (ICD-10) Cellulitis and abscess of right leg ?L03.115 - Cellulitis of right lower limb (ICD-10) ?L02.415 - Cutaneous abscess of right lower limb (ICD-10) Cellulitis of leg, right ?L03.115 - Cellulitis of right lower limb (ICD-10) Surgical History History of hemorrhoidectomy ?Z98.890 - Other specified postprocedural states (ICD-10) History of tonsillectomy ?Z90.89 - Acquired absence of other organs (ICD-10) H/O dilation of urethra ?Z98.890 - Other specified postprocedural states (ICD-10) Family History (Updated 08/29/25 @ 08:54 by Rosa Alcala) Father Heart failure Mother Heart failure Other Family history of Alzheimer's disease Family history of cancer Family history of coronary artery disease Family history of diabetes mellitus Family history of heart disease Family history of hypertension Family history of stroke Social History (Updated 08/29/25 @ 08:52 by Rosa Alcala) Within the past year, how often did you have a drink containing alcohol: monthly or less Smoking status: Former smoker Do you use any of these nicotine containing products: smokeless tobacco Non-prescribed substance use: denies use Previous occupational history: [employer] Highest level of school completed/degree received: high school graduate Are you now , , , , never or living with a partner: Little interest or pleasure in doing things: not at all Feeling down, depressed, or hopeless: not at all Feel stressed/tense/nervous/anxious/difficulty sleeping: not at all Do you think of yourself as: straight/heterosexual Gender Identity: male Meds Home Medications and Allergies Home Medications ?Medication ?Instructions ?Recorded ?Confirmed ?Type metformin 500 mg tablet 500 mg PO BID 05/28/2408/29 History semaglutide 0.25 mg or 0.5 mg (2 0.25 mg subcut QWEEK 05/28/24 08/29/25 History mg/3 mL) subcutaneous pen injector (Ozempic) Held on 08/29/25. Instructions: until after OR procedure simvastatin 20 mg tablet 20 mg PO DAILY 05/28/2408/16 History doxycycline hyclate 100 mg tablet 100 mg PO Q12H 08/2908/29/25 History Allergies Allergy/AdvReac Type Severity Reaction Status Date / Time No Known Drug Allergies Allergy Verified 08/29/25 08:48 Exam Narrative Exam Narrative: Nurses note and vital signs reviewed and patient is not hypoxic. General:The patient appears well and in no apparent distress.Patient is resting comfortably on cart. Skin:Warm, dry, no pallor noted.There is no rash noted. Head:Normocephalic, atraumatic Eye: Normal conjunctiva, no drainage, EOMI. PERRL Ears, Nose, Mouth, and Throat: oral mucosa is moist. Nares patent. Mouth without vesicles. Ear canals patent. Tm?s without Erythema Cardiovascular:Regular Rate and Rhythm Respiratory:Patient is in no distress, no accessory muscle use, lungs are clear to auscultation, no wheezing, rales or rhonchi Back:non-tender, no CVA tenderness bilaterally to percussion. GI:Normal bowel sounds, no tenderness to palpation, no masses appreciated.No rebound, guarding, or rigidity noted. Musculoskeletal: The patient has no evidence of calf tenderness, no pitting edema, symmetrical pulses noted bilaterally Neurological:A&O x4, normal speech Psychiatric:Cooperative Assessment and Plan Assessment and Plan (1) Urethral stricture: Plan He is scheduled for cystoscopy\UD with Nunez sounds on 09/02/[address] Fall
== END 2025-08-29 08:36 | disposition home or self-care (01) ==
LOC: PST 08:35
PROVIDERS: PCP Family Medicine; Visit Provider Urology
DX: Z01.810 Encounter for preprocedural cardiovascular examination (principal); Z01.818 Encounter for other preprocedural examination; N35.919 Unspecified urethral stricture, male, unspecified site
CPT/HCPCS: 93005; G0463

== ENCOUNTER 2025-09-02 12:04 | Day surgery (SDC) | payer BC, SELFPAY ==
[2025-08-29 08:52] VITALS: BP 129/82; PULSE 104; TEMP 36.4; O2SAT 96; BMI 46.1
[2025-09-02] VITALS (12 sets, daily range): BP systolic 121–152; BP diastolic 80–106; PULSE 96–127; TEMP 36.1–36.2; O2SAT 91–97; BMI 45.4
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
[2025-09-02] MEDS: CEFAZOLIN SODIUM 2 GM/50 ML D5W PREMIX IV (14:45)
--- NOTE | 2025-09-02 15:25 | P.URON_ITS ---
Urology Surgery Operative Note Operative Note Procedure Date: 09/02/25 Time Out Performed: yes Pre-op Diagnosis: Recurrent severe urethral stricture Post-op Diagnosis: same as pre-op Procedures performed: 1. Urethral dilation with Nunez sounds to 28 Singaporean. 2. Cystoscopy. 3. Placement of 20 [place]an hualapai tip Sam catheter over a wire Anesthesia: General-LMA Primary Surgeon: Uvaldo Fall Complications: None Estimated blood loss (mL): 20 Findings: Pinpoint opening at the meatus. Severe stricture disease in the penile urethra up to the bulb. Specimens: None Drains: 20 [place] h[place]apai tip Sam catheter in the bladder Indications for Procedures: This gentleman has a long history of severe urethral stricture disease. I dilated him back in 2021. At that time we could only get up to 24 Singaporean. He now presents for urethral dilation and cystoscopy and catheter placement under anesthesia because of severe bladder outlet obstructive symptoms. He has signed an informed consent after risks were explained. Detailed description of Procedure: The patient was brought to the operating room and placed on the operating room table in the supine position. SCDs were placed on the lower extremities and turned on and functioning during the entire case. Timeout was done by all parties in the room. We all agreed upon the patient's identification and the planned procedures for this patient. Genn. anesthesia was then administered. The patient was then repositioned into the modified dorsal lithotomy position. All pressure points were satisfactorily padded. Genitalia were sterilely prepped and draped in usual fashion. I started by attempting to find an opening at his meatus but it was pinpoint. I initially used the floppy tip of the Glidewire but that was not stiff enough. I then used the firm tip of the Glidewire to pop through an opening. I then used the floppy tip and I was able to pass this through the urethra and into the bladder. I then used Nunez sounds and sequentially dilated him from 12 Singaporean up to 28 Singaporean. I then passed a 22 Singaporean Olympus cystoscope per urethra and into the bladder. The anterior urethra from the meatus all the way to just proximal to the bulb was severely ratty and strictured. It was oozing from the dilation. The prostatic urethra and bladder neck were fairly normal with bilateral hypertrophy in the prostate. Panendoscopy in the bladder revealed no evidence of tumors or stones. There was moderate trabeculation with a few diverticuli. The Glidewire was passed through the scope into the bladder. I then removed the scope. I then passed the 20 [place]an hualapai tip catheter over the wire and into the bladder. The wire was re moved. The catheter was irrigated to verify good placement. 10 cc of fluid was placed in the balloon. [facility]U in stable condition. Our plan will be to get his catheter out in a couple days. We then will plan to dilate his urethra at least every 6 months in the office and is scheduled manner. Urinary Catheter Management Urinary Catheter Management Urethral: Cath placed during this visit: no
== END 2025-09-02 16:40 | disposition home or self-care (01) ==
LOC: SURGOUT 12:05
PROVIDERS: PCP Family Medicine; Visit Provider Urology
PROC: (CPT 910; principal; 2025-09-02 13:45)
DX: N35.919 Unspecified urethral stricture, male, unspecified site (principal); N32.89 Other specified disorders of bladder; Z87.891 Personal history of nicotine dependence; E66.01 Morbid (severe) obesity due to excess calories; Z68.42 Body mass index [BMI] 45.0-49.9, adult; G47.33 Obstructive sleep apnea (adult) (pediatric); E78.5 Hyperlipidemia, unspecified; E11.9 Type 2 diabetes mellitus without complications; Z79.84 Long term (current) use of oral hypoglycemic drugs
CPT/HCPCS: 52281; 36415; 82948; J0690; J1100; J1885; J2250; J2704; J3010